=== PATIENT | female | born 1945 | race Two or more races ===

== ENCOUNTER → 2019-08-29 | Outpatient (CLI) | payer MEDICARE ==
--- NOTE | 2019-08-28 19:09 | MR ---
EXAMINATION TYPE: MR knee RT wo con DATE OF EXAM: 08/28/2019 COMPARISON: Outside right knee x-ray July 09, 2019 HISTORY: Rt knee pain per order. Pain and swelling for 3 months per patient. TECHNIQUE: Multiplanar, multisequence images of the knee is performed without IV contrast. FINDINGS: MEDIAL MENISCUS: Anterior horn is intact without tear. Posterior horn shows horizontal slightly irreg ular increased signal does not distinctly extend to articular surface LATERAL MENISCUS: Lateral extrusion is seen on coronal images. Anterior horn is truncated with abnorm al vertical and horizontal signal sagittal image 25. Truncated central body with increased signal. Ob lique signal posterior horn does not extend to articular surface. CRUCIATE LIGAMENTS: The anterior and posterior cruciate ligaments are intact and unremarkable. COLLATERAL LIGAMENTS: The medial collateral ligament and lateral collateral ligament complex are inta ct and unremarkable. EXTENSOR MECHANISM: Visualized quadriceps and patellar tendons are intact. Edematous change through H offa's fat pad deep aspect. EFFUSION: There is large suprapatellar joint effusion. POPLITEAL CYST: No popliteal/ornelas cyst. TRICOMPARTMENT SPACES: Fairly moderate tricompartment joint space loss and minimal spurring. CARTILAGE: Some chondromalacia patella with thinning of articular cartilage. No full thickness loss. Additional cartilaginous thinning over the lateral medial tibial femoral compartments. BONE MARROW SIGNAL: Some overall heterogeneity without suspicious focal edema. OTHER: No additional significant abnormality is appreciated. IMPRESSION: 1. Complex full-thickness tear through posterior horn and central body of the lateral meniscus. 2. Large suprapatellar joint effusion. 3. Moderate tricompartment degenerative changes as detailed above. 4. Probable intrasubstance tear posterior horn of medial meniscus. 5. Fluid signal deep aspect Hoffa's fat pad likely product of large effusion, cannot exclude Hoffa's fat pad impingement syndrome. Correlate clinically.
== END | disposition home or self-care (01) ==
LOC: RADMRIMAIN 05:15
PROVIDERS: ATTEND Orthopaedic Surgery
DX: S83.271A Complex tear of lateral meniscus, current injury, right knee, initial encounter (principal); M25.461 Effusion, right knee; E88.89 Other specified metabolic disorders

== ENCOUNTER → 2019-09-30 | Outpatient (CLI) | payer MEDICARE ==
[2019-09-30 14:06] LABS: Basophils % (A) 1 %; Eosinophils # (A) 0.1 k/uL (0-0.7); Eosinophils % (A) 2 %; HCT 37.6 % (34.0-46.0); HGB 12.1 gm/dL (11.4-16.0); Lymphocytes # (A) 1.9 k/uL (1.0-4.8); Lymphocytes % (A) 36 %; MCH 30.3 pg (25.0-35.0); MCHC 32.3 g/dL (31.0-37.0); Mean Platelet Volume 8.1; Monocytes # (A) 0.3 k/uL (0-1.0); Monocytes % (A) 5 %; Neutrophils # (A) 2.9 k/uL (1.3-7.7); Neutrophils % (A) 56 %; Platelet Count 232 k/uL (150-450); RDW 12.5 % (11.5-15.5); WBC 5.3 k/uL (3.8-10.6)
[2019-09-30 14:37] LABS: Potassium 4.4 mmol/L (3.5-5.1)
== END | disposition home or self-care (01) ==
LOC: LABPAT 12:52
PROVIDERS: ATTEND Orthopaedic Surgery
DX: Z01.818 Encounter for other preprocedural examination (principal); M23.91 Unspecified internal derangement of right knee
CPT/HCPCS: 36415; 80051; 85025; 93005

== ENCOUNTER 2019-10-03 11:23 | Day surgery (SDC) | payer MEDICARE ==
[2019-09-30 16:01] VITALS: BMI 22.4
--- NOTE | 2019-10-02 16:51 | HP ---
HISTORY AND PHYSICAL DATE OF SERVICE: 10/03/2019 Maryanne Don is a 74-year-old patient seen with progressive right knee pain. We discussed options for treatment. She elected to proceed with arthroscopy. Consent was obtained. PAST MEDICAL HISTORY: Noncontributory. PAST SURGICAL HISTORY: Appendectomy. DAILY MEDICATIONS: Ibuprofen, Restoril, Xanax. ALLERGIES: None. SOCIAL HISTORY: She denies tobacco use. PHYSICAL EVALUATION OF THE RIGHT KNEE: Range of motion is 0-125. Tenderness along the lateral joint line. Positive lateral Anabel's. Ligaments stable. Hip rotation without pain. Distal neurovascular exam is intact. RADIOGRAPHS OF THE RIGHT KNEE: Revealed moderate osteoarthritis. An MRI of the right knee revealed lateral meniscal tear, osteoarthritis and joint effusion. IMPRESSION: 1. Internal derangement, right knee lateral meniscal tear. 2. Right knee osteoarthritis. PLAN: Right knee arthroscopy with partial meniscectomy, partial synovectomy and debridement. MMODL / IJN: [id number] /
[~2019-10-03 11:23] MED LIST: DEXAMETHASONE SOD PHOSPHATE 10 MG/ML 1 ML VIAL IV ONE; HYDROmorphone 0.5 MG/0.5 ML SYRINGE IVP PRN; LACTATED RINGERS 1,000 ML IV SCH; ONDANSETRON 4 MG/2 ML VIAL IVP ONE
[2019-10-03] MEDS ORDERED: ONDANSETRON 4 MG/2 ML VIAL ONE (13:18)
[2019-10-03] MEDS ORDERED: LIDOCAINE 1% INJ 10MG/ML (20 ML MDV) ONE (14:23)
[2019-10-03] MEDS ORDERED: fentaNYL (PF) 50 MCG/ML 2 ML AMP ONE (14:23)
[2019-10-03] MEDS ORDERED: PROPOFOL 10 MG/ML 20 ML VIAL IV ONE (14:23)
[2019-10-03] MEDS ORDERED: MIDAZOLAM 2 MG/2 ML VIAL ONE (14:23)
[2019-10-03] MEDS ORDERED: BUPIVACAINE (PF) 0.25% 30 ML VIAL SQ ONE ×2 (14:26→15:03)
--- NOTE | 2019-10-03 15:20 | P.OP ---
Date of Procedure: 10/03/19 Preoperative Diagnosis: Internal derangement right knee Postoperative Diagnosis: 1. Tear lateral meniscus right knee 2. Grade 2 chondromalacia lateral femoral condyle right knee 3. Grade 2 chondromalacia patella right knee 4. Reactive synovitis medial, lateral and suprapatellar compartments right knee Procedure(s) Performed: 1. Arthroscopic partial lateral meniscectomy right knee 2. Arthroscopic chondroplasty lateral femoral condyle right knee 3. Arthroscopic chondroplasty patella right knee 4. Arthroscopic partial synovectomy medial, lateral and suprapatellar compartments right knee Anesthesia: ADITIA, local Surgeon: Satish Russo Estimated Blood Loss (ml): 7 Pathology: none sent Condition: stable Disposition: PACU Indications for Procedure: 74-year-old patient seen with progressive right knee pain. After treatment options were discussed, she elected to proceed with arthroscopy. Operative Findings: see description of procedure Description of Procedure: Patient was taken to the operative suite. Patient underwent a general anesthetic by the department of anesthesia. Patient was given preoperative antibiotics. The right lower extremity was placed in a well-padded arthroscopic leg reynolds. The right leg was prepped and draped in the normal sterile orthopedic fashion. A lateral parapatellar and suprapatellar incision was made. Trochars were inserted. Arthroscopy was initiated. Suprapatellar pouch revealed diffuse thick reactive synovitis. The patellofemoral joint appeared to articulate congruently. There was grade 2 chondromalacia of the patella with diffuse osteochondral flap tears present. The scope was guided into the medial gutter. No loose bodies or plica were identified. The scope was then guided into the medial compartment. A medial parapatellar incision was made. Trocar inserted followed by probe. The medial meniscus was probed and found to be stable. There was some grade 1/2 chondromalacia of the medial femoral condyle but no osteochondral flap tears were present. There was some thick reactive synovitis anteriorly. I performed a partial synovectomy. There was good decompression of the synovitis. Scope and probe were then guided into the intercondylar notch. Cruciates were identified, probed and found to be stable. The scope and probe were then guided into lateral compartment. There was a complex tear of the lateral meniscus involving the anterior horn and midbody and posterior horn. There were grade 2 chondromalacia changes of lateral femoral condyle with some diffuse osteochondral flap tears present. There was thick reactive synovitis anteriorly. I performed a partial lateral meniscectomy. I performed a chondroplasty of the lateral femoral condyle. I performed a partial synovectomy. The residual meniscus was stable. The residual osteochondral surface of the femoral condyle was stable. There was good decompression of the synovitis. The scope was in guided back into the suprapatellar compartment. I introduced a motorized shaver into the suprapatellar compartment. I debrided some piecemeal fragments of meniscus I encountered. I performed a chondroplasty of the patella. The shaver was removed. The residual osteochondral surface of the patella was stable. I took one more look around the entire knee, no residual debris. Instruments were now removed from the joint. The joint was infiltrated with .25% Marcaine. Steri-Strips were applied to the portal sites. Sterile dressings were applied. The patient was placed into a JOSS hose. No tourniquet was utilized. The patient was awakened, transferred to a bed and ta krishan to recovery stable satisfactory condition.
[2019-10-04 08:13] VITALS: BP 150/64; PULSE 82; RESP 20; TEMP 97.6
== END 2019-10-03 17:35 | disposition home or self-care (01) ==
LOC: OR 11:23
PROVIDERS: ATTEND Orthopaedic Surgery
DX: M23.241 Derangement of anterior horn of lateral meniscus due to old tear or injury, right knee (principal); M23.251 Derangement of posterior horn of lateral meniscus due to old tear or injury, right knee; M22.41 Chondromalacia patellae, right knee; R42 Dizziness and giddiness; M17.11 Unilateral primary osteoarthritis, right knee; M65.861 Other synovitis and tenosynovitis, right lower leg; Z90.49 Acquired absence of other specified parts of digestive tract; Z79.899 Other long term (current) drug therapy; Z72.0 Tobacco use; Z82.49 Family history of ischemic heart disease and other diseases of the circulatory system
CPT/HCPCS: 93005; 29881; J2250; J1100; J2405; J0690; J2001; J3010; J2704; J1170

== ENCOUNTER → 2020-05-26 | Outpatient (CLI) | payer MEDICARE | END | disposition home or self-care (01) | LOC: LABPAT 15:31 | PROVIDERS: ATTEND Orthopaedic Surgery | DX: Z01.812 Encounter for preprocedural laboratory examination (principal) | CPT/HCPCS: 87070 ==

== ENCOUNTER 2020-07-06 10:59 | Day surgery (SDC) | payer MEDICARE ==
[2020-06-29 14:15] VITALS: BMI 22.6
--- NOTE | 2020-07-05 11:34 | HP ---
HISTORY AND PHYSICAL DATE OF SURGERY: 07/06/2020 HISTORY OF PRESENT ILLNESS: Maryanne Don is a 75-year-old patient seen with symptomatic right knee osteoarthritis. We discussed options for treatment. She elected to proceed with right total knee arthroplasty. Consent was obtained. Medical clearance was provided by Dr. Branden Neri. PAST MEDICAL HISTORY: Osteoarthritis. PAST SURGICAL HISTORY: Appendectomy. MEDICATIONS: Flexeril, ibuprofen, Xanax. ALLERGIES: None. SOCIAL HISTORY: She denies tobacco use. PHYSICAL EVALUATION OF THE RIGHT KNEE: Right knee: Range of motion is -3/4 to 115. Tenderness along the lateral joint line. Crepitus along lateral patellofemoral compartments with range of motion. Pain with patellofemoral compression. Genu valgum deformity. Distal neurovascular exam intact. RADIOGRAPHS: Right knee radiographs revealed severe osteoarthritic changes. IMPRESSION: Right knee osteoarthritis. PLAN: Right total knee arthroplasty. MMODL / IJN: [id number] /
[~2020-07-06 10:59] MED LIST changes: +ACETAMINOPHEN TAB 500 MG TAB PO PRN; -DEXAMETHASONE SOD PHOSPHATE 10 MG/ML 1 ML VIAL IV ONE; +DEXAMETHASONE SOD PHOSPHATE 4 MG/ML 1 ML VIAL IV ONE; -LACTATED RINGERS 1,000 ML IV SCH; +MELOXICAM 7.5 MG TAB PO PRN; +MIDAZOLAM 2 MG/2 ML VIAL IV PRN; +ROPIVACAINE/EPI/CLONIDINE/KET 50 ML SYRINGE MISCELLANE PRN; +TRANEXAMIC ACID 1,000 MG in SODIUM CHLORIDE 0.9% 100 ML IVPB PRN
[2020-07-06] MEDS: LIDOCAINE 1% (10MG/ML) FOR IV START INTRADERMA PRN ×2 (11:16→11:46)
[2020-07-06] MEDS: LACTATED RINGERS 1,000 ML IV SCH ×2 (11:45→18:59)
[2020-07-06] MEDS ORDERED: fentaNYL (PF) 50 MCG/ML 2 ML AMP ONE (12:35)
[2020-07-06] MEDS ORDERED: MIDAZOLAM 2 MG/2 ML VIAL ONE (12:35)
[2020-07-06] MEDS ORDERED: LIDOCAINE 1% INJ 10MG/ML (20 ML MDV) ONE (12:35)
[2020-07-06] MEDS ORDERED: PROPOFOL 10 MG/ML 20 ML VIAL IV ONE (12:35)
[2020-07-06] MEDS ORDERED: SODIUM CHLORIDE 0.9% 100 ML BAG ONE (12:35)
[2020-07-06] MEDS ORDERED: TRANEXAMIC ACID 1,000 MG/10 ML VIAL ONE (12:35)
[2020-07-06] MEDS ORDERED: ROPIVACAINE 0.2%-NS ON-Q PUMP 1,090 MG, EMPTY PAIN BALL 1 EACH MISCELLANE PRN (12:55)
[2020-07-06] MEDS ORDERED: ceFAZolin 3,000 MG in SODIUM CHLORIDE 0.9% IRRIGATIO 3,000 ML IRRIGATION ONE (13:05)
--- NOTE | 2020-07-06 13:21 | P.ANPRN ---
Procedure Note - Anesthesia - Nerve Block Performed Right Adductor Canal Infusion Time Out Performed: Yes Date of Procedure: 07/06/20 Procedure Start Time: 11:53 Procedure Stop Time: 11:58 Location of Patient: PreOp Indication: Acute Post-Operative Pain, Analgesia, Dx/Pain Location, Requested by Surgeon Sedation Type: Sedate with meaningful contact maintained Preparation: Sterile Prep Position: Supine Catheter: Indwelling Needle Types: Pajunk Needle Gauge: 21 Ultrasound used to visualize needle placement: Yes Ultrasound used to observe medication spread: Yes Injectate: 0.5% Ropivacaine (see comment for volume) Blood Aspirated: No Pain Paresthesia on Injection Noted: No Resistance on Injection: Normal Image Stored and Saved: Yes Events: Uneventful and Well Tolerated
[2020-07-06] MEDS ORDERED: HYDROcodone/APAP 5-325MG 1 EACH TAB PO PRN (14:09)
[2020-07-06] MEDS ORDERED: HYDROmorphone 0.2 MG/1 ML SYRINGE IVP PRN (14:09)
[2020-07-06] MEDS ORDERED: ONDANSETRON 4 MG/2 ML VIAL IVP PRN (14:09)
[2020-07-06] MEDS ORDERED: HYDROmorphone 0.5 MG/0.5 ML SYRINGE IVP PRN ×2 (14:09)
[2020-07-06] MEDS ORDERED: NALOXONE 0.4 MG/ML 1 ML VIAL IV PRN (14:09)
--- NOTE | 2020-07-06 14:09 | P.OP ---
Date of Procedure: 07/06/20 Preoperative Diagnosis: Right knee osteoarthritis Postoperative Diagnosis: Right knee osteoarthritis Procedure(s) Performed: Right total knee arthroplasty Implants: 1. Depuy attune size 5 narrow cruciate retaining cemented femur 2. Depuy attune size 4 fixed bearing cemented tibial baseplate 3. Depuy attune size 5 fixed bearing cruciate retaining 5 mm polyethylene tibial insert 4. Depuy attune 38 mm all polyethylene cemented patella Anesthesia: regional (Adductor canal catheter), local, spinal Surgeon: Satish Russo Backroom Associate #1: Keith Arredondo Estimated Blood Loss (ml): 45 Pathology: other (Bone) Condition: stable Disposition: PACU Indications for Procedure: 75-year-old patient seen with symptomatic right knee osteoarthritis. After treatment options were discussed, she elected to proceed with total knee arthrop lasty. Operative Findings: see description of procedure Description of Procedure: Patient was taken to the operative suite after having an adductor canal catheter placed by the department of anesthesia. Patient underwent a spinal anesthetic by the department of anesthesia. Patient was given preoperative IV intake antibiotics and TXA. A well-padded tourniquet was placed about the right lower extremity. The lower extremity was then prepped and draped in the normal sterile orthopedic fashion. The extremity was elevated, a tourniquet was ins ufflated to 300. A standard anterior incision was made sharply through skin. Dissection was taken down through the subcutaneous soft tissues down to the extensor mechanism. A medial arthrotomy was performed, patella was everted and knee was flexed. There was advanced osteoarthritis noted. I introduced my distal intramedullary femoral drill. I then introduced the distal femoral cutting jig. Keith RAMÍREZ secured the cutting jig with 2 pins. I held retractors in position while Keith RAMÍREZ performed the distal femoral resection through the guide area we now removed her distal femoral cutting guide. We now placed our 4-in-1 femoral cutting block and positioned and it was secured with 2 pins by Keith RAMÍREZ while I held the block in position. The distal femoral finishing was now completed. A proximal tibial cutting guide was positioned. I held the guide in the appropriate position with both hands well Keith RAMÍREZ inserted stabilizing pins into the guide. Proximal tibial cut was made. We now placed a trial femoral component into position, along with an appropriate size tibial tray and insert. We now took the knee through range of motion and had full extension good flexion and good overall soft tissue balance noted. The patella was everted and stabilized with 2 towel clips held by Keith RAMÍREZ while I performed a flush with patellar quad tendon utilizing a fresh sawblade. We templated the patella, appropriate drill holes were made. An appropriate trial patella was positioned, knee was taken through full range of motion with the patella tracking very nicely. The trial patella was removed. Drill holes were made through the femoral component. All trial components were removed after marking off the appropriate rotation of the tibia. Retractors were now positioned along the proximal tibia. An appropriate keel punch was made with the appropriate size tibial guide by myself on Helio RAMÍREZ assisted by holding retractors. At this point appropriate size implants were chosen and opened. The joint was irrigated copiously with pulse lavage mechanical irrigation. The posterior capsule was infiltrated with local analgesic. The wound was irrigated with pulse lavage mechanical irrigation. We mixed antibiotic methylmethacrylate. We placed the knee into flexion. We placed multiple retractors assisted by Keith RAMÍREZ to expose the proximal tibia. Once the methyl methacrylate was ready, the tibial component was cemented into place removing any excess methylmethacrylate form by both myself and Keith RAMÍREZ. The femoral component was cemented into place removing the removing any excess methylmethacrylate performed by both myself and Keith RAMÍREZ. We then inserted the appropriate size polyethylene tibial insert. We made sure that it was locked into position. We took the knee into full extension, and then back in a flexion making sure we had removed any excess methylmethacrylate. The patellar component was then cemented down and secured with clamp. Excess methylmethacrylate removed. We kept the knee in full extension, patellar clamp in position until methylmethacrylate had hardened. Once it had hardened the patellar clamp was removed. The knee was taken through full range of motion. The patella tracked nicely. There was good soft tissue balancing. The tourniquet was now released. Additional hemostasis was achieved via electrocautery. A second gram of TXA was given. The wound again was irrigated with pulse lavage mechanical irrigation. The superficial soft tissues were infiltrated local analgesic. The extensor mechanism was repaired with Vicryl. We checked the repair with range of motion and it was stable. The subcutaneous soft tissues were repaired with Vicryl in layers. The skin was approximated with pernio/Dermabond. Sterile dressings were applied followed by loose web roll and David bandage. The patient was transferred to a bed, and taken to recovery in stable and satisfactory condition. Keith RAMÍREZ assisted with this complex procedure.
[2020-07-06] MEDS ORDERED: LACTATED RINGERS 1,000 ML IV ONE (14:18)
--- NOTE | 2020-07-06 14:59 | XR ---
EXAMINATION TYPE: XR knee limited RT DATE OF EXAM: 07/06/2020 CLINICAL HISTORY: Right knee pain and arthritis status post total knee replacement. TECHNIQUE: Portable AP and crosstable lateral views of the right knee are obtained immediately posto peratively. COMPARISON: Outside right knee x-ray April 21, 2020 FINDINGS: Metallic hardware from total right knee arthroplasty is seen and appears satisfactory in a lignment and position. There is evidence of recent surgery with diffuse subcutaneous gas and surroun ding soft tissue swelling noted. [place] osseous structures demineralized. IMPRESSION: METALLIC HARDWARE FROM TOTAL RIGHT KNEE ARTHROPLASTY IS SATISFACTORY IN ALIGNMENT.
[2020-07-06] MEDS: HYDROcodone/APAP 5-325MG 1 EACH TAB PO PRN (18:52)
[2020-07-06] MEDS ORDERED: SENNOSIDES-DOCUSATE SODIUM 1 EACH TAB PO SCH (21:00)
[2020-07-06] MEDS: ENOXAPARIN 30 MG/0.3 ML SYRINGE SQ SCH (21:35)
[2020-07-07] MEDS: HYDROcodone/APAP 5-325MG 1 EACH TAB PO PRN ×3 (01:37→11:21)
[2020-07-07] MEDS: LACTATED RINGERS 1,000 ML IV SCH ×2 (01:39→04:42)
[2020-07-07 04:30] VITALS: BP 119/61; PULSE 67; RESP 14; TEMP 98
--- NOTE | 2020-07-07 06:12 | P.PN ---
Progress Note - Text Progress Note Date: 07/07/20 adductor canal rounds, POD 1 R TKR. doing well, mild posterior knee pain. VAS 2/10, able to stand and ambulate. pump in place. site clean and dry, patient resting this morning. 1 dose of hydrocodone 5mg over night. will be d/c home today with catheter.
[2020-07-07 06:40] LABS: Basophils % (A) 0 %; Eosinophils # (A) 0.1 k/uL (0-0.7); Eosinophils % (A) 1 %; HCT 29.6 % (34.0-46.0); HGB 10.4 gm/dL (11.4-16.0); Lymphocytes # (A) 1.1 k/uL (1.0-4.8); Lymphocytes % (A) 14 %; MCH 32.5 pg (25.0-35.0); MCHC 35.1 g/dL (31.0-37.0); MCV 92.4 fL (80.0-100.0); Mean Platelet Volume 7.6; Monocytes # (A) 0.4 k/uL (0-1.0); Monocytes % (A) 5 %; Neutrophils # (A) 6.2 k/uL (1.3-7.7); Neutrophils % (A) 80 %; Platelet Count 196 k/uL (150-450); RBC 3.21 m/uL (3.80-5.40); RDW 12.4 % (11.5-15.5); WBC 7.8 k/uL (3.8-10.6)
[2020-07-07] MEDS: ENOXAPARIN 30 MG/0.3 ML SYRINGE SQ SCH (08:35)
[2020-07-07] MEDS ORDERED: MELOXICAM 7.5 MG TAB PO SCH (09:00)
[2020-07-07] MEDS ORDERED: FAMOTIDINE 20 MG TAB PO SCH (09:00)
--- NOTE | 2020-07-07 12:52 | P.DS ---
Providers Date of admission: 07/06/2020 Expected date of discharge: 07/07/20 Attending physician: Satish Russo Consults: 07/06/20 14:09 Consult Physician Routine Consulting Provider: Alton Carlos Consult Reason/Comments: Medical management Do you want consulting provider notified?: Yes Primary care physician: Noé Chaney [facility] Course: Date of admission: 07/06/2020 Date of discharge: 07/07/2020 Admission diagnosis: Right knee osteoarthritis Discharge diagnosis: Same Attending physician: Dr. Russo Surgical procedures: Right total knee arthroplasty Brief history: Patient is a 75-year-old female with a history of progressive primary right knee osteoarthritis. At this point patient has failed conservative treatment measures and has opted to proceed with a elective right total knee arthroplasty. Hospital course: Details of patient's surgery can be found in operative report. Patient tolerated the procedure well and was subsequently transported to orthopedic floor. Patient's orthopeidc and medical care was provided daily. Patient had daily laboratory tests performed for evaluation of overall blood counts . Patient had daily physical therapy to include strengthening range of motion as well as education with walker ambulation. Patient was treated with Lovenox for their postoperative DVT prophylaxis during their inpatient stay. Patient was noted to have a relatively uneventful postoperative course. Patient reported satisfactory pain control with oral pain medications by postoperative day 1. Patient showed satisfactory progress with physical therapy. Patient moved steadily through the program and had no difficulty meeting the goals by postoperative day 1. Given patient's otherwise satisfactory course and having met physical therapy goals, plan is to discharge patient home on postoperative day 1. Discharge condition/disposition: Patient will be discharged home in stable condition. Discharge medications: Instructions are given on resumption of patient's normal daily medications per primary care recommendation, in addition patient will be prescribed [place] 5 mg/325 mg. Patient has aspirin and MiraLAX at home that she takes. Discharge instructions: 1. Wound care and infection precautions, keep incision dry and covered while showering, no lotions, creams, moisturizers. No soaking, tubs, pools, hottubs. Do not scrub over the incision. 2. Weight-bear as tolerated with walker / cane until follow-up. 3. Ice and elevate when necessary. Do not exceed 20 minutes per hour with ice pack. 4. Utilize compression sleeve until seen at first follow up appointment. 5. Visiting nursing care. 6. Home physical therapy including home CPM. 7. Pain meds and anticoagulants per prescription. 8. Pain medication has potential to cause constipation. Increase oral fluid and fiber intake. Contact primary care provider if you have not had a bowel movement within 48 hours after discharge 9. No anti-inflammatory medication until discussed at first post operative visit, this including Motrin, Aleve, Mobic, Diclofenac. 10. Follow up in office at 2 weeks postop with Helio Kidd PA-C / Keith Arredondo PA-C 11. Follow up with your primary care doctor 7-10 days after discharge. 12. Contact [facility] with any questions, . Keep silver foam dressing on for first 7-10 days. Cover dressing with Saran wrap or plastic bag while showering. Dressing may be removed in 7 days. Assessment: Right knee osteoarthritis Procedures: Right total knee arthroplasty Patient Condition at Discharge: Good Plan - Discharge Summary Discharge Rx Participant: No New Discharge Prescriptions: New HYDROcodone/APAP 5-325MG [[place] 5-325] 1 tab PO Q6HR PRN #42 tab PRN Reason: Pain Continue Temazepam [Restoril] 30 mg PO HS Cholecalciferol (Vitamin D3) [Vitamin D3 (5000 Iu)] 125 mcg PO DAILY Ascorbic Acid [Vitamin C] 1,000 mg PO DAILY Discontinued Ibuprofen [Motrin] 800 mg PO Q8H PRN PRN Reason: Pain Discharge Medication List Temazepam [Restoril] 30 mg PO HS 09/30/19 [History] Ascorbic Acid [Vitamin C] 1,000 mg PO DAILY 06/29/20 [History] Cholecalciferol (Vitamin D3) [Vitamin D3 (5000 Iu)] 125 mcg PO DAILY 06/29/20 [History] HYDROcodone/APAP 5-325MG [[place] 5-325] 1 tab PO Q6HR PRN #42 tab 07/07/20 [Rx] Follow up Appointment(s)/Referral(s): [facility], [NON-STAFF] - As Needed Alexi Kidd PAC [PHYSICIAN GEAR MACHINE OPERATOR GENERAL] - 2 Weeks Activity/Diet/Wound Care/Special Instructions: Orthopedic Discharge Instructions: 1. Wound care and infection precautions, keep incision dry and covered while showering, no lotions, creams, moisturizers. No soaking, pools, hot tubs. Do not scrub over incision. 2. Weight-bear as tolerated with walker / cane until follow-up. 3. Ice and elevate when necessary. Do not exceed 20 minutes per hour with ice pack. 4. Utilize compression sleeve until seen at first follow up appointment. 5. Pain meds and anticoagulants per prescription. 6. Pain medication has potential to cause constipation. Increase oral fluid and fiber intake. Contact primary care provider if you have not had a bowel movement within 48 hours after discharge. 7. No anti-inflammatory medication until discussed at first post operative visit, this including Motrin, Aleve, Mobic, Diclofenac. 8. Follow up in office at 2 weeks postop with Helio Kidd PA-C / Keith Arredondo PA-C 9. Follow up with your primary care doctor 7-10 days after discharge. 10. Contact [facility] with any questions, . Keep silver foam dressing on for first 7-10 days. Keep dressing covered with Saran wrap or plastic bag while showering. Silver foam dressing may be removed after 7-10 days Discharge Disposition: HOME WITH HOME HEALTH SERVICES
--- NOTE | 2020-07-07 13:49 | P.PN ---
Subjective Progress Note Date: 07/07/20 Principal diagnosis: Right total knee arthroplasty Upon entering room patient was sitting up in chair icing knee. Patient says she is in minimal pain. She rates it as 2 or 3 out of 10. She states most of the pain is at the back of the knee. She says all of the nurses and PT have been surprised by how well she has been doing. Patient says she would like to go home today. She says she had bowel movement last night and has been passing gas. She says she has been doing exercises on own as well. Has been using incentive spirometer. Denies, fever, chest pain, SOB. Objective - Vital Signs Vital signs: Vital Signs Temp 98.0 F 07/07/20 04:26 Pulse 67 07/07/20 04:26 Resp 14 07/07/20 04:26 BP 119/61 07/07/20 04:26 Pulse Ox 95 07/07/20 04:26 Intake & Output 07/06/20 07/07/20 07/07/20 18:59 06:59 18:59 Intake Total 1301 750 240 Output Total 45 Balance 1256 750 240 Weight 56 kg Intake: IV 1301 Intake, IV Titration 550 Amount Lactated Ringers 1,000 ml 450 @ 50 mls/hr IV .Q20H [place] Rx#:[id number] ceFAZolin 2 gm In Sodium 100 Chloride 0.9% 50 ml @ 100 mls/hr IVPB Q8H [place] Rx#: [id number] Oral 200 240 Output: Estimated Blood Loss 45 Other: Voiding Method Toilet # Voids 2 - Exam Incision is clean, dry, and intact. The exofin fusion tape is in good condition. There is minimal soft tissue swelling and ecchymosis surrounding the medial and lateral aspects of the incision. Calf is soft, no tenderness with palpation. Plantar flexion, dorsiflexion, EHL, FHL are intact. Sensory exam to light touch throughout the extremity is intact, dorsal pedis pulses 2+. - Labs CBC & Chem 7: 07/07/20 06:13 Labs: Abnormal Lab Results - Last 24 Hours (Table) 07/07/20 Range/Units 06:13 RBC 3.21 L (3.80-5.40) m/uL Hgb 10.4 L (11.4-16.0) gm/dL Hct 29.6 L (34.0-46.0) % Assessment and Plan Assessment: Right knee osteoarthritis Plan: Assessment: Postoperative day 1 status post right total knee arthroplasty Plan: 1. Continue with medical management 2. Pain management - going home with [place] 5 mg/325 mg for pain. Stool softeners prn 3. Continue with physical therapy, including gait/stair training. 4. Continue with daily aspirin for DVT prophylaxis. 5. Discharge planning. 6. Anticipated discharge today 07/07/2020. Time with Patient: Less than 30
[2020-07-08] MEDS ORDERED: CHOLECALCIFEROL 25 MCG (1000 IU) TABLET PO SCH (09:00)
[2020-07-08] MEDS ORDERED: ASCORBIC ACID 500 MG TAB PO SCH (09:00)
== END 2020-07-07 13:25 | disposition home health service (06) ==
LOC: OR 10:59 → 5NMEDONC 14:35 → OR 07-07 13:25
PROVIDERS: ATTEND Orthopaedic Surgery
DX: M17.11 Unilateral primary osteoarthritis, right knee (principal); Z20.822 Contact with and (suspected) exposure to COVID-19; Z79.899 Other long term (current) drug therapy; Z88.2 Allergy status to sulfonamides
CPT/HCPCS: 27447; 97110; 97161; 64448; 76942; 85025; 88300; 87635; 73560; C1776; C1713; J2250; J1100; J0690 ×3; J2405; J1650 ×2

== ENCOUNTER 2021-10-17 16:51 | Inpatient (IN) | payer MEDICARE, OTHER ==
[2021-10-17] MEDS ORDERED: MORPHINE SULFATE 4 MG/ML SYRINGE IVP STA (17:10)
--- NOTE | 2021-10-17 17:37 | XR ---
EXAMINATION TYPE: XR chest 1V DATE OF EXAM: 10/17/2021 5:33 PM COMPARISON: Chest radiographs from TECHNIQUE: XR chest 1V Frontal view of the chest. CLINICAL INDICATION:Female, 76 years old with history of FALL; FINDINGS: Lungs/Pleura: There is no evidence of pleural effusion, focal consolidation, or pneumothorax. Pulmonary vascularity: Unremarkable. Heart/mediastinum: Cardiomediastinal silhouette is unremarkable. Musculoskeletal: No acute osseous pathology. IMPRESSION: No acute cardiopulmonary disease/process.
--- NOTE | 2021-10-17 17:39 | XR ---
EXAMINATION TYPE: XR Hip RT and AP Pelvis DATE OF EXAM: 10/17/2021 5:33 PM INDICATION: Patient age:Female; 76 years old; Reason for study: right hip pain, fall; PHH. COMPARISON: None. TECHNIQUE: The right hip was examined in the frontal and lateral projections and a AP pelvis. FINDINGS: Acute valgus impacted subcapital right femoral neck fracture. No additional fractures are i dentified. Scattered pelvic phleboliths are present. Multilevel disc degeneration changes are present . Dystrophic calcifications within the gluteal muscles bilaterally. IMPRESSION: Valgus impacted right subcapital femoral neck fracture.
--- NOTE | 2021-10-17 17:40 | XR ---
EXAMINATION TYPE: XR knee complete RT DATE OF EXAM: 10/17/2021 5:33 PM INDICATION: Patient age:Female; 76 years old; Reason for study: right knee pain, fall; COMPARISON: Right knee radiograph 07/06/2020. TECHNIQUE: The Right knee(s) was examined in 3 projections. Frontal, lateral and oblique. FINDINGS: Postsurgical changes from total knee arthroplasty with distal femoral proximal tibial com ponents. Hardware appears intact with appropriate alignment. No periprosthetic lucency. No evidence o f any acute osseous pathology, joint space narrowing, soft tissue swelling, or joint effusion is note d. IMPRESSION: 1. No acute osseous pathology. 2. Postsurgical changes from total knee arthroplasty with intact hardware.
[2021-10-17 18:25] LABS: Basophils % (A) 0 %; Eosinophils # (A) 0.1 k/uL (0-0.7); Eosinophils % (A) 1 %; HCT 39.2 % (34.0-46.0); HGB 12.4 gm/dL (11.4-16.0); Lymphocytes % (A) 27 %; MCH 29.4 pg (25.0-35.0); MCHC 31.5 g/dL (31.0-37.0); MCV 93.1 fL (80.0-100.0); Mean Platelet Volume 8.4; Monocytes # (A) 0.4 k/uL (0-1.0); Monocytes % (A) 5 %; Neutrophils # (A) 4.9 k/uL (1.3-7.7); Neutrophils % (A) 66 %; Platelet Count 286 k/uL (150-450); RBC 4.21 m/uL (3.80-5.40); RDW 13.2 % (11.5-15.5); WBC 7.4 k/uL (3.8-10.6)
[2021-10-17 18:33] LABS: Calcium 8.9 mg/dL (8.4-10.2); Potassium 4.2 mmol/L (3.5-5.1)
[2021-10-17] MEDS ORDERED: MORPHINE SULFATE 4 MG/ML SYRINGE IV PRN (18:33)
[2021-10-17] MEDS ORDERED: NALOXONE 0.4 MG/ML 1 ML VIAL IV PRN (18:33)
--- NOTE | 2021-10-17 18:37 | ED ---
General Adult HPI - General Chief complaint: Extremity Injury, Lower Stated complaint: fall Time Seen by Provider: 10/17/21 16:56 Source: patient, family, EMS, RN notes reviewed, old records reviewed Mode of arrival: EMS Limitations: physical limitation - History of Present Illness Initial comments: Patient is a 76-year-old female who presents emergency Department following a mechanical fall. She is not on thinners. No loss of conscious. Tripped and fell onto her right hip. Does have a history of right knee replacement. Was unable to ambulate afterwards. Had extreme pain in the right hip. Denies any sensory deficits the right lower extremity. No other injuries. Denies hitting her head. Does not take blood thinners. No other injuries. Does have a history of prior knee surgery. Also has a history of chronic back pain. No change in pain in her back. States her right hip hurts. Presents for further evaluation at this time. - Related Data Home Medications Medication Instructions Recorded Confirmed Calcium Carbonate [Calcium] 600 mg PO DAILY 10/17/21 10/17/21 Cholecalciferol [Vitamin D3 (25 50 mcg PO DAILY 10/17/21 10/17/21 Mcg = 1000 Iu)] Ibuprofen [Motrin] 800 mg PO TID PRN 10/17/21 10/17/21 Temazepam [Restoril] 30 mg PO HS 10/17/21 10/17/21 Vitamin B Complex 1 cap PO DAILY 10/17/21 10/17/21 hydrOXYzine HCL [Atarax] 25 mg PO DIRECTED@2100 PRN 10/17/21 10/17/21 polyethylene glycoL 3350 [Miralax] 17 gm PO DAILY 10/17/21 10/17/21 Allergies Allergy/AdvReac Type Severity Reaction Status Date / Time No Known Allergies Allergy Verified 10/17/21 16:53 Review of Systems ROS Statement: Those systems with pertinent positive or pertinent negative responses have been documented in the HPI. Review of Systems: CONST: Denies fever EYES: Denies blurry vision ENT: Denies nasal congestion C/V: Denies Chest pain RESP: Denies shortness of breath GI: Denies abdominal pain : Denies dysuria SKIN: Denies rash. MSK: Endorses right hip pain NEURO: Denies headache ROS Other: All systems not noted in ROS Statement are negative. Past Medical History Past Medical History: Osteoarthritis (OA) Additional Past Medical History / Comment(s): Chronic back pain History of Any Multi-Drug Resistant Organisms: None Reported Past Surgical History: Orthopedic Surgery Additional Past Surgical History / Comment(s): Right knee arthroscopy. Past Anesthesia/Blood Transfusion Reactions: No Reported Reaction Past Psychological History: No Psychological Hx Reported Smoking Status: Former smoker Past Alcohol Use History: None Reported Past Drug Use History: None Reported - Past Family History Mother Family Medical History: Cancer Brother(s) Family Medical History: Cancer Sister(s) Family Medical History: Cancer General Exam - General Exam Comments Initial Comments: General: Appears in mild distress secondary to pain. HEAD: Normal with no signs of head trauma. EYES: PERRLA, EOMI, conjunctiva normal, no discharge. ENT: Hearing grossly intact, normal oropharynx. RESPIRATORY: Clear breath sounds bilaterally. No wheezes, rales, or rhonchi. C/V: Regular rate and rhythm. S1 and S2 auscultated. No peripheral edema. Peripheral pulses 2+ and intact throughout. ABD: Abd is soft, nontender, nondistended EXT: No Shortening of the right lower extremity. Tenderness palpation over the lateral medial aspect of the right hip. No obvious deformities. Mild tenderness to palpation along the joint lines of the right knee. No decreased range of motion the right knee or right ankle. Unable to move the right hip secondary to pain. SKIN: No rashes or lesions observed on exposed skin. NEURO: Alert and oriented 4. No focal sensory strength deficits. Neurovascular intact in the right lower extremity. Limitations: physical limitation Course Vital Signs 10/17/21 10/17/21 16:53 18:57 Temperature 97.7 F Pulse Rate 69 68 Respiratory 18 16 Rate Blood Pressure 136/58 143/53 O2 Sat by Pulse 97 98 Oximetry Medical Decision Making - Medical Decision Making Based on the patient's presentation and physical exam, I'm concerned for bony traumatic injury the patient's right hip or knee. X-rays will be obtained. She'll be given IV pain medications. She was in agreement this plan. X-rays revealed no acute injury the patient's right knee. Chest x-ray shows no acute cardiopulmonary process. Patient does have a valgus impacted right subcapital femoral neck fracture. I updated the patient on the x-ray findings. She requires surgery. Patient does have prior history with Dr. Russo. I spoke with the on-call physician from that group, Dr. Melissa was in agreement with the admission and will speak with Dr. Russo. Requested medical management. I spoke with the internal medicine physician, Dr. Anaya who will medically manage. Screening EKG was obtained and shows no acute cardiopulmonary process. Screening presurgical laboratory studies attendance shows no acute findings. Patient was therefore admitted in stable condition. Nothing by mouth after midnight. - Lab Data Result diagrams: 10/17/21 18:04 10/17/21 18:04 Lab Results 10/17/21 10/17/21 10/17/21 Range/Units 18:04 18:04 18:04 WBC 7.4 (3.8-10.6) k/uL RBC 4.21 (3.80-5.40) m/uL Hgb 12.4 (11.4-16.0) gm/dL Hct 39.2 (34.0-46.0) % MCV 93.1 (80.0-100.0) fL MCH 29.4 (25.0-35.0) pg MCHC 31.5 (31.0-37.0) g/dL RDW 13.2 (11.5-15.5) % Plt Count 286 (150-450) k/uL MPV 8.4 Neutrophils % 66 % Lymphocytes % 27 % Monocytes % 5 % Eosinophils % 1 % Basophils % 0 % Neutrophils # 4.9 (1.3-7.7) k/uL Lymphocytes # 2.0 (1.0-4.8) k/uL Monocytes # 0.4 (0-1.0) k/uL Eosinophils # 0.1 (0-0.7) k/uL Basophils # 0.0 (0-0.2) k/uL PT 9.8 (9.0-12.0) sec INR 0.9 (<1.2) APTT 22.9 (22.0-30.0) sec Sodium 137 (137-145) mmol/L Potassium 4.2 (3.5-5.1) mmol/L Chloride 106 (98-107) mmol/L Carbon Dioxide 26 (22-30) mmol/L Anion Gap 5 mmol/L BUN 17 (7-17) mg/dL Creatinine 1.00 (0.52-1.04) mg/dL Est GFR (CKD-EPI)AfAm 63 (>60 ml/min/1.73 sqM) Est GFR (CKD-EPI)NonAf 54 (>60 ml/min/1.73 sqM) Glucose 85 (74-99) mg/dL Calcium 8.9 (8.4-10.2) mg/dL - EKG Data -: EKG Interpreted by Me EKG Comments: 12-lead Electrocardiogram Interpretation Note EKG was reviewed and interpreted by myself. 12-lead ECG performed at 1813 is interpreted by me as revealing normal sinus rhythm at a rate of default value beats per minute. 68 axis is normal. [place] interval is 194 ms, QRS duration is 98 ms, QTc is 427 ms.. There were no ST or T wave abnormalities to suggest myocardial ischemia or injury. R wave progression across the precordium was satisfactory. By my interpretation this EKG is non-diagnostic for acute ischem ia. Disposition Clinical Impression: Fracture of femoral neck, right Disposition: ADMITTED IP TO THIS HOSP Condition: Stable Time of Disposition: 18:05
[2021-10-17 18:53] LABS: INR 0.9 (<1.2); Prothrombin Time 9.8 sec (9.0-12.0)
[2021-10-17 19:10] LABS: Partial Thromboplastin Time 22.9 sec (22.0-30.0)
[2021-10-17] MEDS: SODIUM CHLORIDE 0.9% 1,000 ML IV SCH (19:49)
[2021-10-17] MEDS: HEPARIN SODIUM,PORCINE/PF 5,000 UNIT/0.5 ML SYRINGE SQ SCH (20:54)
[2021-10-17] MEDS: TEMAZEPAM 15 MG CAP PO PRN (20:54)
[2021-10-17] MEDS ORDERED: hydrOXYzine HCL 25 MG TAB PO PRN (21:00)
[2021-10-17] MEDS ORDERED: KETOROLAC 15 MG/ML 1 ML VIAL IVP STA (23:02)
[2021-10-17] MEDS ORDERED: ACETAMINOPHEN TAB 325 MG TAB PO PRN (23:02)
[2021-10-18] MEDS: MORPHINE SULFATE 2 MG/ML SYRINGE IV PRN ×6 (04:31→22:09)
[2021-10-18] MEDS: SODIUM CHLORIDE 0.9% 1,000 ML IV SCH ×4 (04:32→20:35)
[2021-10-18 06:57] LABS: Basophils % (A) 0 %; Eosinophils # (A) 0.1 k/uL (0-0.7); Eosinophils % (A) 1 %; HCT 37.6 % (34.0-46.0); HGB 12.3 gm/dL (11.4-16.0); Lymphocytes # (A) 0.8 k/uL (1.0-4.8); Lymphocytes % (A) 17 %; MCH 31.2 pg (25.0-35.0); MCHC 32.7 g/dL (31.0-37.0); MCV 95.3 fL (80.0-100.0); Mean Platelet Volume 7.7; Monocytes # (A) 0.1 k/uL (0-1.0); Monocytes % (A) 3 %; Neutrophils # (A) 3.7 k/uL (1.3-7.7); Neutrophils % (A) 78 %; Platelet Count 217 k/uL (150-450); RBC 3.95 m/uL (3.80-5.40); RDW 13.8 % (11.5-15.5); WBC 4.7 k/uL (3.8-10.6)
[2021-10-18 07:06] LABS: African American GFR (CKD) 73 (>60 ml/min/1.73 sqM); Anion Gap 1 mmol/L; Blood Urea Nitrogen 13 mg/dL (7-17); Calcium 8.1 mg/dL (8.4-10.2); Carbon Dioxide 27 mmol/L (22-30); Chloride 111 mmol/L (98-107); Glucose 98 mg/dL (74-99); Non-African American GFR(CKD) 64 (>60 ml/min/1.73 sqM); Potassium 4.5 mmol/L (3.5-5.1); Sodium 139 mmol/L (137-145)
[2021-10-18] MEDS: HEPARIN SODIUM,PORCINE/PF 5,000 UNIT/0.5 ML SYRINGE SQ SCH (07:36)
[2021-10-18] MEDS: CHOLECALCIFEROL 25 MCG (1000 IU) TABLET PO SCH (08:01)
[2021-10-18] MEDS: CALCIUM CARBONATE 500 MG CHEWABLE PO SCH (08:01)
[2021-10-18] MEDS: FOLIC ACID-VIT B COMPLEX-VIT C 1 CAP PO SCH (08:01)
[2021-10-18] MEDS: polyethylene glycoL 3350 17 GM POWD.PACK PO SCH (08:01)
--- NOTE | 2021-10-18 09:44 | P.HPOR ---
History of Present Illness H&P Date: 10/18/21 Chief Complaint: Right hip fracture Patient is a 68-year-old female who presented to [facility] on 10/18/2021 after falling at home. Patient states that she tripped over a leg of a chair which caused. Patient fell directly on her right side. Patient was u nable to weight bear after the injury. She was brought to [facility] by EMS. Upon arrival, imaging and lab test were done. This demonstrated a impacted right femoral neck fracture. Orthopedic team was contacted, patient was admitted under our care with plan for surgical interven tion. Patient was evaluated today at bedside, she is on the medical/surgical floor. She is resting comfortably and appears to be in no acute distress. She notes groin pain with movement of the right lower extremity. She denies any pain involving the right knee, lower leg, foot or ankle. She denies any left lower extremity pain. She denies any bilateral lower extremity pain. Denies any new onset cervical, thoracic or lumbar pain. Patient has a history of a right total knee arthroplasty that was done by Dr. Russo June 2020. 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 Past Anesthesia/Blood Transfusion Reactions: No Reported Reaction Past Psychological History: No Psychological Hx Reported Smoking Status: Former smoker Past Alcohol Use History: None Reported Additional Past Alcohol Use History / Comment(s): Quit smoking 35 yrs ago. Past Drug Use History: None Reported - Past Family History Mother Family Medical History: Cancer Brother(s) Family Medical History: Cancer Sister(s) Family Medical History: Cancer Medications and Allergies Home Medications Medication Instructions Recorded Confirmed Type Calcium Carbonate [Calcium] 600 mg PO DAILY 10/17/21 10/17/21 History Cholecalciferol [Vitamin D3 (25 50 mcg PO DAILY 10/17/21 10/17/21 History Mcg = 1000 Iu)] Ibuprofen [Motrin] 800 mg PO TID PRN 10/17/21 10/17/21 History Temazepam [Restoril] 30 mg PO HS 10/17/21 10/17/21 History Vitamin B Complex 1 cap PO DAILY 10/17/21 10/17/21 History hydrOXYzine HCL [Atarax] 25 mg PO DIRECTED@2100 PRN 10/17/21 10/17/21 History polyethylene glycoL 3350 [Miralax] 17 gm PO DAILY 10/17/21 10/17/21 History Allergies Allergy/AdvReac Type Severity Reaction Status Date / Time No Known Allergies Allergy Verified 10/17/21 16:53 Physical Examination Right lower extremity: Obvious shortening of the extremity is noted when compared to the contralateral side well-healed incision over the anterior aspect of the knee No significant erythema or soft tissue swelling is present throughout the extremity Motion is very limited at the hip due to pain, she is unable to straight leg raise. She can extend and bend the knee with minimal difficulty, this does cause pain in the hip. Plantar flexion, dorsiflexion, EHL, FHL are intact Calf is soft, no tenderness with palpation Sensory exam to light touch throughout the extremity is intact Dorsalis pedis pulses 2+ Results - Labs Labs: Abnormal Lab Results - Last 24 Hours (Table) 10/18/21 10/18/21 Range/Units 06:23 06:23 Lymphocytes # 0.8 L (1.0-4.8) k/uL Chloride 111 H (98-107) mmol/L Calcium 8.1 L (8.4-10.2) mg/dL H & H 10/17/21 10/18/21 Range/Units 18:04 06:23 Hgb 12.4 12.3 (11.4-16.0) gm/dL Hct 39.2 37.6 (34.0-46.0) % Coagulation 10/17/21 Range/Units 18:04 INR 0.9 (<1.2) Result Diagrams: 10/18/21 06:23 10/18/21 06:23 - Diagnostic results Hip x-ray: report reviewed, image reviewed (X-rays of the right hip do demonstrate a impacted right femoral neck fracture) Knee x-ray: report reviewed, image reviewed (Images demonstrate total knee arthroplasty, stable appearing components. No obvious lucencies) Assessment and Plan Assessment: Right femoral neck fracture Status post fall from standing Previous right total knee arthroplasty, stable components Plan: I was able to discuss the case with my attending Dr. Russo. I was able to discuss treatment options with the patient today at bedside. We would like to proceed with a direct anterior right total hip arthroplasty. Risks and benefits of the procedure were discussed with the patient, this too including but not excluded infection, blood loss, neurovascular injury, development of blood clots, inadequate healing of bone, pain and stiffness, need for subsequent surgery. Patient is in good understanding and would like to proceed. Consent will be obtained prior to procedure Continue nothing by mouth diet at this time Medical recommendations DVT prophylaxis, patient has received heparin during her hospital stay. We'll restart after surgery, likely transition to aspirin 81 mg twice a day discharge PT/OT evaluation after surgery Discharge planning: Anticipate discharge to home with home health care when stable Time with Patient: Less than 30
[2021-10-18] MEDS ORDERED: IV FLUID CONTINUATION 950 ML IV ONE (14:46)
[2021-10-18] MEDS ORDERED: TRANEXAMIC ACID IN NACL,ISO-OS 1,000 MG in SALINE 1 100ML.BAG IVPB PRN ×2 (14:59→15:02)
[2021-10-18] MEDS ORDERED: ONDANSETRON 4 MG/2 ML VIAL ONE (15:06)
[2021-10-18] MEDS ORDERED: PHENYLEPHRINE-0.9% NACL SYG 1,000 MCG/10 ML SYRINGE ONE (15:34)
[2021-10-18] MEDS ORDERED: MIDAZOLAM 2 MG/2 ML VIAL ONE (15:34)
[2021-10-18] MEDS ORDERED: PROPOFOL 10 MG/ML 20 ML VIAL IV ONE (15:34)
[2021-10-18] MEDS ORDERED: KETAMINE 10 MG/ML 20 ML VIAL ONE (15:34)
[2021-10-18] MEDS ORDERED: TRANEXAMIC ACID IN NACL,ISO-OS 1,000 MG/100 ML BAG ONE (15:34)
--- NOTE | 2021-10-18 16:08 | P.CONS ---
History of Present Illness - Reason for Consult Consult date: 10/18/21 - History of Present Illness This is a pleasant 76 year old female who presents to the hospital with right hip pain after a mechanical fall. Patient reports she tripped over the leg of a chair and fell on her right hip. She denies dizziness or lighteadedness prior to fall. Patient follows with Dr. Srinivasa Gonzalez in the primary care setting. Medical history includes cancer, osteoarthritis with chronic back pain. She sees Dr Rush with pain management services for injections in her back and she also follows with Dr Russo for hip injections. She quit smoking 35 years ago and she takes motrin as needed for pain at home, she also takes restoril at home as needed for insomnia. No reported history of heart disease, hypertension, diabetes. Hip Pelvis Xray on admission shows valgus impacted right subcapital femoral neck fracture. EKG on admission shows sinus rhythm heart rate [address] or T wave abnormalities. QT interval 427. Labs are nondiagnostic, unremarkable blood count panel, eletrolytes within normal limits. Blood pressure 126/72. Patient is admitted to orthopedics and is pending surgical repair left hip fracture. Medically she is stable for surgery. REVIEW OF SYSTEMS: CONSTITUTIONAL: No fever, no malaise, no fatigue. HEENT: No recent visual problems or hearing problems. Denied any sore throat. CARDIOVASCULAR: No chest pain, orthopnea, PND, no palpitations, no syncope. PULMONARY: No shortness of breath, no cough, no hemoptysis. GASTROINTESTINAL: No diarrhea, no nausea, no vomiting, no abdominal pain. NEUROLOGICAL: No headaches, no weakness, no numbness. HEMATOLOGICAL: Denies any bleeding or petechiae. GENITOURINARY: Denies any burning micturition, frequency, or urgency. MUSCULOSKELETAL/RHEUMATOLOGICAL: Reports right hip pain no numbness or tingling ENDOCRINE: Denies any polyuria or polydipsia. The rest of the 14-point review of systems is negative. PHYSICAL EXAMINATION: GENERAL: The patient is alert and oriented x3, not in any acute distress. Well developed, well nourished. HEENT: Pupils are round and equally reacting to light. EOMI. No scleral icterus. No conjunctival pallor. Normocephalic, atraumatic. No pharyngeal erythema. No thyromegaly. CARDIOVASCULAR: S1 and S2 present. No murmurs, rubs, or gallops. PULMONARY: Chest is clear to auscultation, no wheezing or crackles. ABDOMEN: Soft, nontender, nondistended, normoactive bowel sounds. No palpable organomegaly. MUSCULOSKELETAL: No joint swelling or deformity. EXTREMITIES: No cyanosis, clubbing, or pedal edema. NEUROLOGICAL: Gross neurological examination did not reveal any focal deficits. SKIN: No rashes. Assessment and plan Assessment Right femoral neck hip fracture secondary to mechanical fall History osteoarthritis History of basal cell skin cancer on chest and legs Insomnia takes restoril and atarax as needed Former smoker quit 35 years ago GI Prophylaxis DVT Prophyalxis as per primary Plan Continue with IV hydration while NPO Patient is cleared medically to under surgical repair of hip fracture she is considered low risk. EKG reviewed Labs reviewed. Resume appropriate home medications. Thank you kindly for this consultation The impression and plan of care has been dictated by Jessica Wong Nurse Practitioner as directed. Dr. Zaida MD I have performed a history and physical examination and medical decision making of this patient, discussed the same with the dictator, and agree with the dictators assessment and plan as written, documented as a scribe. Based on total visit time, I have performed more than 50% of this visit. 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 Past Anesthesia/Blood Transfusion Reactions: No Reported Reaction Past Psychological History: No Psychological Hx Reported Smoking Status: Former smoker Past Alcohol Use History: None Reported Additional Past Alcohol Use History / Comment(s): Quit smoking 35 yrs ago. Past Drug Use History: None Reported - Past Family History Mother Family Medical History: Cancer Brother(s) Family Medical History: Cancer Sister(s) Family Medical History: Cancer Medications and Allergies Home Medications Medication Instructions Recorded Confirmed Type Calcium Carbonate [Calcium] 600 mg PO DAILY 10/17/21 10/17/21 History Cholecalciferol [Vitamin D3 (25 50 mcg PO DAILY 10/17/21 10/17/21 History Mcg = 1000 Iu)] Ibuprofen [Motrin] 800 mg PO TID PRN 10/17/21 10/17/21 History Temazepam [Restoril] 30 mg PO HS 10/17/21 10/17/21 History Vitamin B Complex 1 cap PO DAILY 10/17/21 10/17/21 History hydrOXYzine HCL [Atarax] 25 mg PO HS PRN 10/17/21 10/18/21 History polyethylene glycoL 3350 [Miralax] 17 gm PO DAILY 10/17/21 10/17/21 History Allergies Allergy/AdvReac Type Severity Reaction Status Date / Time No Known Allergies Allergy Verified 10/18/21 14:46 Physical Exam Vitals: Vital Signs Temp Pulse Pulse Resp BP BP Pulse Ox 10/18/21 08:00 97.8 F 74 16 126/72 96 10/18/21 02:00 97.5 F L 67 17 125/62 93 L 10/17/21 21:08 98.2 F 71 17 135/63 96 10/17/21 18:57 68 16 143/53 98 10/17/21 16:53 97.7 F 69 18 136/58 97 Intake and Output 10/17/21 10/18/21 10/18/21 22:59 06:59 14:59 Intake Total 1200 Output Total 700 Balance 500 Intake: Intake, IV Titration 1200 Amount Sodium Chloride 0.9% 1, 1200 000 ml @ 100 mls/hr IV . Q10H [facility] Rx#:[id number] Oral 0 Output: Urine 700 Other: # Bowel Movements 0 Weight 56.699 kg Results CBC & Chem 7: 10/18/21 06:23 10/18/21 06:23 Labs: Abnormal Lab Results - Last 24 Hours (Table) 10/18/21 10/18/21 Range/Units 06:23 06:23 Lymphocytes # 0.8 L (1.0-4.8) k/uL Chloride 111 H (98-107) mmol/L Calcium 8.1 L (8.4-10.2) mg/dL Assessment and Plan Time with Patient: Less than 30
[2021-10-18] MEDS ORDERED: ceFAZolin 1,000 MG in SODIUM CHLORIDE 0.9% 1,000 ML IRRIGATION ONE (16:14)
[2021-10-18] MEDS ORDERED: HYDROcodone/APAP 5-325MG 1 EACH TAB PO PRN (17:08)
[2021-10-18] MEDS ORDERED: HYDROmorphone 0.5 MG/0.5 ML SYRINGE IVP PRN ×3 (17:08)
[2021-10-18] MEDS ORDERED: NALOXONE 0.4 MG/ML 1 ML VIAL IV PRN (17:08)
--- NOTE | 2021-10-18 17:08 | P.OP ---
Date of Procedure: 10/18/21 Preoperative Diagnosis: Displaced right hip femoral neck fracture Postoperative Diagnosis: Displaced right hip femoral neck fracture Procedure(s) Performed: Direct anterior right total hip arthroplasty Implants: 1. Depuy [place] 135 standard collar size 12 press-fit femoral stem 2. Depuy [place] 52 mm multihole press-fit acetabular shell 3. Depuy pinnacle neutral polyethylene acetabular liner 36 mm ID 52 mm OD 4. Depuy metal femoral head 36 mm -2 Anesthesia: spinal Surgeon: Satish Russo [facility] Consultant #1: Alxei Kidd Estimated Blood Loss (ml): 200 Pathology: none sent (Femoral head) Condition: stable Disposition: PACU Indications for Procedure: 68-year-old patient who was seen with a displaced right hip femoral neck fracture. We discussed treatment options with the patient. I reviewed direct anterior right total hip arthroplasty. I discussed the procedure, risks, complications and recovery. Patient and family were agreeable, consent was obtained. Operative Findings: see description of procedure Description of Procedure: The patient was taken to the operative suite. Patient underwent a spinal anesthetic by the department of anesthesia. Patient was then transferred to the [place] table. Patient was given preoperative IV antibiotics and TXA. Both lower extremities were placed in standard leg spars. The hip was then prepped and draped in the normal sterile orthopedic fashion. A standard anterior incision was made beginning 3 cm lateral and 1 cm distal to the ASIS extending 10 cm. Dissection was then carried down through the subcutaneous soft tissues down to the fascia overlying the tensor fascia kota. An incision was now made through the fascia. Careful dissection was taken down exposing the tensor fascia kota muscle. A Cobra retractor was now placed along the medial femoral neck and a second one along the lateral femoral neck. The venous circumflex vessels were now identified, cauterized and clipped. We identified the anterior hip capsule. An incision was made through the hip capsule along the lateral border. I performed a partial anterior capsulectomy. Retractors were now placed around the femoral neck itself. A femoral neck cut was now made with a sagittal saw. It was completed with an osteotome at the lateral neck area. The femoral head was now removed without difficulty. The extremity was now rotated to 60 of external rotation. It was locked in position. Residual labrum was now debrided out. Serial reaming was performed of the acetabulum while Helio RAMÍREZ assisted holding an anterior retractor for exposure. Once we reached the appropriate size and a trial was position and fit nicely. The appropriate size was now chosen opened and made available. It was introduced into the acetabulum without difficulty. The C-arm/fluoroscopy was now brought into the operative field. We made sure we had a true AP pelvic view. We now under direct C- arm/fluoroscopy introduced into the acetabular component with appropriate version and inclination. I held the cup in appropriate position well Helio RAMÍREZ used a mallet to seat the acetabular component. I noted the component now to be well seated and stable. Acetabular cup introduce her was removed. The C-arm was pulled back. An appropriate liner was introduced and clicked into position. It was felt to be stable. At this point retractors were removed. The extremity was now placed into 130 external rotation with no traction. The leg was now dropped to the ground and adducted. Appropriate retractors were now positioned along the proximal femur. We also placed our femoral look into position. Additional capsular releasing was performed to gain access to the proximal femur. We now used a box osteotome. A canal finder was now utilized. Serial broaching was now performed with the assistance of Helio RAMÍREZ tapping the broaches down with a mallet while held the broach in appropriate rotation and position. This was done until we reached the appropriate size with good overall rotational stability. Appropriate calcar planing was performed. A trial head/neck was placed into position. The hip was now reduced. The C-ar m/fluoroscopy was brought back into the operative field. I obtained an AP pelvis which demonstrated adequate leg length alignment. The trial components were visualized and appeared appropriately sized and appropriately positioned. The C-arm/fluoroscopy was pulled back. Retractors were repositioned and the hip was dislocated. The leg was again taken down to the ground and adducted. Appropriate retractors were repositioned as well as the femoral hook. All trial components were removed. The femoral implant was opened along with the femoral head. The femoral implant was introduced on the appropriate handle into our pre-broached area. I held the component position well Helio RAMÍREZ used a mallet to seat the femoral component. The femoral component was now noted to be well seated and stable.. The femoral head was introduced with good positioning and fixation noted. Retractors were now removed. The hip was now reduced. There appeared be good positioning of the hip confirmed on intraoperative fluoroscopy. Spot films were obtained to document this. A second gram of TXA was given. The deep and superficial soft tissues were infiltrated with local analgesic. Bipolar cautery had been utilized intermittently through the procedure for hemostasis. The wound was irrigated copiously with pulse lavage mechanical irrigation. The fascia was repaired with Vicryl suture. The s ubcutaneous soft tissues were repaired in layers with Vicryl suture. The skin was approximated with pernio/Dermabond. Sterile dressings were applied. Patient was then awakened, transferred to a bed and taken to recovery in stable condition. Helio RAMÍREZ assisted with the complex procedure.
--- NOTE | 2021-10-18 17:24 | FL ---
Intraoperative/procedural fluoroscopic services were provided. Total fluoroscopy time is 13.2 seconds with a total of 2 submitted images to PACS. Please see the operative/procedural note for further det ails.
[2021-10-18] MEDS: SENNOSIDES-DOCUSATE SODIUM 1 EACH TAB PO SCH (20:34)
[2021-10-18] MEDS: ONDANSETRON 4 MG/2 ML VIAL IVP PRN (22:09)
[2021-10-19] MEDS: MORPHINE SULFATE 2 MG/ML SYRINGE IV PRN ×3 (03:47→20:57)
[2021-10-19] MEDS: SODIUM CHLORIDE 0.9% 1,000 ML IV SCH ×2 (03:50→20:57)
[2021-10-19] MEDS: HYDROcodone/APAP 5-325MG 1 EACH TAB PO PRN ×2 (05:09→10:53)
[2021-10-19] MEDS: ONDANSETRON 4 MG/2 ML VIAL IVP PRN (05:25)
[2021-10-19] MEDS ORDERED: ONDANSETRON 4 MG/2 ML VIAL IVP PRN (08:54)
[2021-10-19] MEDS ORDERED: FAMOTIDINE 20 MG/2 ML VIAL IV SCH (09:00)
[2021-10-19] MEDS: FOLIC ACID-VIT B COMPLEX-VIT C 1 CAP PO SCH (09:58)
[2021-10-19] MEDS: CALCIUM CARBONATE 500 MG CHEWABLE PO SCH (09:58)
[2021-10-19] MEDS: CHOLECALCIFEROL 25 MCG (1000 IU) TABLET PO SCH (09:58)
[2021-10-19] MEDS: FAMOTIDINE 20 MG TAB PO SCH (09:58)
[2021-10-19] MEDS: ENOXAPARIN 40 MG/0.4 ML SYRINGE SQ SCH (09:59)
[2021-10-19] MEDS: polyethylene glycoL 3350 17 GM POWD.PACK PO SCH (10:01)
--- NOTE | 2021-10-19 10:08 | P.PN ---
Subjective Progress Note Date: 10/19/21 Principal diagnosis: Status post direct anterior right total hip arthroplasty Patient was evaluated at bedside today, she is resting in her hospital bed. I was contacted by nursing this morning, patient was having a lot of nausea. We did adjust her medications for that. Patient with physical therapy but was very lightheaded and nauseous. Denies chest pain or shortness of breath at this time. States that she was having some discomfort in the right lower extremity but it is tolerable. Objective - Vital Signs Vital signs: Vital Signs Temp 98.3 F 10/19/21 07:17 Pulse 76 10/19/21 07:17 Resp 14 10/19/21 07:17 BP 147/55 10/19/21 07:17 Pulse Ox 96 10/19/21 07:17 FiO2 Intake & Output 10/18/21 10/19/21 10/19/21 18:59 06:59 18:59 Intake Total 1001 1180 Output Total 400 700 Balance 601 480 Intake: IV 1001 Intake, IV Titration 590 Amount Sodium Chloride 0.9% 1, 590 000 ml @ 70 mls/hr IV . [id number] [facility] Rx#:[id number] Oral 590 Output: Urine 200 700 Estimated Blood Loss 200 Other: Voiding Method Indwelling Catheter Indwelling Catheter - Exam Right lower extremity: Incision is clean, dry, and intact. The foam dressing is in good condition. There is minimal soft tissue swelling and ecchymosis surrounding the medial and lateral aspects of the incision. Calf is soft, no tenderness with palpation. Plantar flexion, dorsiflexion, EHL, FHL are intact. Sensory exam to light touch throughout the extremity is intact, dorsal pedis pulses 2+. - Labs CBC & Chem 7: 10/18/21 06:23 10/18/21 06:23 Assessment and Plan Assessment: Postoperative day #1 status post direct anterior total hip arthroplasty Right femoral neck fracture, status post fall from standing Plan: Pain control, continue with current medications as needed. Avoid IV narcotics unless severe pain. Continue Zofran as needed for nausea DVT prophylaxis, continue subcu medication during inpatient stay. Transition to 81 mg aspirin twice a day for 30 days of discharge Wound care, leave dressing place Encourage incentive spirometer Continue PT, weightbearing as tolerated with walker Medical recommendations Discharge planning: Patient will remain in hospital at least overnight to monitor nausea, hopeful discharge to home tomorrow with home health care
[2021-10-19 11:04] LABS: Basophils # (A) 0.02 X 10*3/uL (0.00-0.10); Basophils % (A) 0.2 %; Eosinophils # (A) 0.03 X 10*3/uL (0.04-0.35); Eosinophils % (A) 0.3 %; HCT 30.6 % (37.2-46.3); Immature Grans, Automated 0.2 %; Lymphocytes # (A) 0.74 X 10*3/uL (0.90-5.00); Lymphocytes % (A) 8.1 %; MCH 30.4 pg (27.0-32.0); MCHC 32.7 g/dL (32.0-37.0); Mean Platelet Volume 10.7 fL (9.5-12.2); Monocytes # (A) 0.48 X 10*3/uL (0.20-1.00); Monocytes % (A) 5.2 %; NRBC Per 100 WBC 0 /100 WBCS (0.0-0.0); Neutrophils # (A) 7.88 X 10*3/uL (1.80-7.70); Platelet Count 180 X 10*3/uL (140-440); RBC 3.29 X 10*6/uL (4.10-5.20); RDW 14.1 % (11.5-14.5); WBC 9.17 X 10*3/uL (4.50-10.00)
[2021-10-19] MEDS: MULTIVITAMINS, THERA 1 EACH TAB PO SCH (13:08)
--- NOTE | 2021-10-19 18:58 | P.PN ---
Subjective Progress Note Date: 10/19/21 This is a pleasant 76 year old female who presents to the hospital with right hip pain after a mechanical fall. Patient reports she tripped over the leg of a chair and fell on her right hip. She denies dizziness or lighteadedness prior to fall. Patient follows with Dr. Srinivasa Gonzalez in the primary care setting. Medical history includes cancer, osteoarthritis with chronic back pain. She sees Dr Rush with pain management services for injections in her back and she also follows with Dr Russo for hip injections. She quit smoking 35 years ago and she takes motrin as needed for pain at home, she also takes restoril at home as needed for insomnia. No reported history of heart disease, hypertension, d iabetes. Hip Pelvis Xray on admission shows valgus impacted right subcapital femoral neck fracture. EKG on admission shows sinus rhythm heart rate [address] or T wave abnormalities. QT interval 427. Labs are nondiagnostic, unremarkable blood count panel, eletrolytes within normal limits. Blood pressure 126/72. Patient is admitted to orthopedics and is pending surgical repair left hip fracture. Medically she is stable for surgery. 10/19/2021 Patient is postoperative day #1 direct anterior right total hip arthroplasty with Dr. Russo. Patient reports not sleeping well last night due to pain and also she had some nausea. She is feeling better today, reports feeling tired. She remains afebrile, blood pressure 147/55, 96% on 2 L nasal cannula, heart rate 76. Encourage incentive spirometry. PHYSICAL EXAMINATION: GENERAL: The patient is alert and oriented x3, not in any acute distress. Well developed, well nourished. HEENT: Pupils are round and equally reacting to light. EOMI. No scleral icterus. No conjunctival pallor. Normocephalic, atraumatic. No pharyngeal erythema. No thyromegaly. CARDIOVASCULAR: S1 and S2 present. No murmurs, rubs, or gallops. PULMONARY: Chest is clear to auscultation, no wheezing or crackles. ABDOMEN: Soft, nontender, nondistended, normoactive bowel sounds. No palpable organomegaly. MUSCULOSKELETAL: No joint swelling or deformity. EXTREMITIES: No cyanosis, clubbing, or pedal edema. NEUROLOGICAL: Gross neurological examination did not reveal any focal deficits. SKIN: No rashes. Post surgical dressing intact. Assessment and plan Assessment Right femoral neck hip fracture secondary to mechanical fall Postoperative day #1 History osteoarthritis History of basal cell skin cancer on chest and legs Insomnia takes restoril and atarax as needed Former smoker quit 35 years ago GI Prophylaxis DVT Prophyalxis as per primary Full Code Plan Continue IV fluids discontinue when tolerating increase in oral intake Labs reviewed today Continue to encourage incentive spirometry PT consultation recommending home with HC pending clinical course Thank you kindly for this consultation The impression and plan of care has been dictated by Jessica Wong, Nurse Practitioner as directed. Dr. Zaida MD I have performed a history and physical examination and medical decision making of this patient, discussed the same with the dictator, and agree with the dictators assessment and plan as written, documented as a scribe. Based on total visit time, I have performed more than 50% of this visit. Objective - Vital Signs Vital signs: Vital Signs Temp 98.3 F 10/19/21 07:17 Pulse 76 10/19/21 07:17 Resp 14 10/19/21 07:17 BP 147/55 10/19/21 07:17 Pulse Ox 96 10/19/21 07:17 FiO2 Intake & Output 10/18/21 10/19/21 10/19/21 18:59 06:59 18:59 Intake Total 1001 1180 Output Total 400 700 Balance 601 480 Intake: IV 1001 Intake, IV Titration 590 Amount Sodium Chloride 0.9% 1, 590 000 ml @ 70 mls/hr IV . [id number] [facility] Rx#:[id number] Oral 590 Output: Urine 200 700 Estimated Blood Loss 200 Other: Voiding Method Indwelling Catheter Indwelling Catheter - Labs CBC & Chem 7: 10/19/21 07:00 10/18/21 06:23 Assessment and Plan Time with Patient: Less than 30
[2021-10-19] MEDS: TEMAZEPAM 15 MG CAP PO PRN (20:56)
[2021-10-19] MEDS: SENNOSIDES-DOCUSATE SODIUM 1 EACH TAB PO SCH (20:56)
[2021-10-20] MEDS: HYDROcodone/APAP 5-325MG 1 EACH TAB PO PRN ×2 (00:09→08:23)
[2021-10-20 07:51] VITALS: BP 124/68; PULSE 86; TEMP 99.6
[2021-10-20 08:16] VITALS: RESP 18
[2021-10-20] MEDS: polyethylene glycoL 3350 17 GM POWD.PACK PO SCH (09:46)
[2021-10-20] MEDS: ENOXAPARIN 40 MG/0.4 ML SYRINGE SQ SCH (09:46)
[2021-10-20] MEDS: FAMOTIDINE 20 MG TAB PO SCH (09:47)
[2021-10-20] MEDS: FOLIC ACID-VIT B COMPLEX-VIT C 1 CAP PO SCH (09:47)
[2021-10-20] MEDS: CHOLECALCIFEROL 25 MCG (1000 IU) TABLET PO SCH (09:47)
[2021-10-20] MEDS: CALCIUM CARBONATE 500 MG CHEWABLE PO SCH (09:47)
--- NOTE | 2021-10-20 11:25 | P.DS ---
Providers Date of admission: 10/17/21 18:33 Expected date of discharge: 10/20/21 Attending physician: Satish Russo Consults: 10/17/21 18:33 Consult Physician Routine Consulting Provider: Selina Anaya Consult Reason/Comments: medical management Do you want consulting provider notified?: Already Contacted Primary care physician: Srinivasa Gonzalez MD Hospital Course: Date of admission: 10/18/2021 Date of discharge: 10/20/2021 Admission diagnosis: Right hip femoral neck fracture Discharge diagnosis: Same Attending physician: Dr. Russo Surgical procedures: Right total hip arthroplasty Brief history: Patient is a 76-year-old female with a history of right hip femoral neck fracture status post fall. At this point patient has failed conservative treatment measures and has opted to proceed with a elective right total hip arthroplasty. Hospital course: Details of patient's surgery can be found in operative report. Patient tolerated the procedure well and was subsequently transported to orthopedic floor. Patient's orthopeidc and medical care was provided daily. Patient had daily laboratory tests performed for evaluation of overall blood counts. Patient had daily physical therapy to include strengthening range of motion as well as education with walker ambulation. Patient was treated with Lovenox for their postoperative DVT prophylaxis during their inpatient stay. Patient was noted to have a relatively uneventful postoperative course. Patient reported satisfactory pain control with oral pain medications by postoperative day 2. Patient showed satisfactory progress with physical therapy. Patient moved steadily through the program and had no difficulty meeting the goals by postoperative day 2. Given patient's otherwise satisfactory course and having met physical therapy goals, plan is to discharge patient home with health services on postoperative day 2. Discharge condition/disposition: Patient will be discharged home with health services in stable condition. Discharge medications: Instructions are given on resumption of patient's normal daily medications per primary care recommendation, in addition patient will be prescribed []. Orthopedic Discharge Instructions: 1. Wound care and infection precautions, keep incision dry and covered while showering, no lotions, creams, moisturizers. No soaking, pools, hot tubs. Do not scrub over incision. 2. Weight-bear as tolerated with walker / cane until follow-up. 3. Ice and elevate when necessary. Do not exceed 20 minutes per hour with ice pack. 4. Utilize compression sleeve until seen at first follow up appointment. 5. Pain meds and anticoagulants per prescription. 6. Pain medication has potential to cause constipation. Increase oral fluid and fiber intake. Contact primary care provider if you have not had a bowel movement within 48 hours after discharge. 7. No anti-inflammatory medication until discussed at first post operative visit, this including Motrin, Aleve, Mobic, Diclofenac. 8. Follow up in office at 2 weeks postop with Helio Kidd PA-C / Keith Arredondo PA-C 9. Follow up with your primary care doctor 7-10 days after discharge. 10. Contact [facility] with any questions, . Keep silver foam dressing on until 10/25/2021. While showering with dressing on, cover dressing with Saran wrap. Medications: Fulda; aspirin 81 mg twice a day 30 days; Colace Assessment: Right hip femoral neck fracture Procedures: Right total hip arthroplasty Patient Condition at Discharge: Stable Plan - Discharge Summary Discharge Rx Participant: No New Discharge Prescriptions: New HYDROcodone/APAP 5-325MG [Fulda 5-325] 1 - 2 tab PO Q6HR PRN #32 tab PRN Reason: Pain Aspirin [Adult Low Dose Aspirin EC] 81 mg PO BID #60 tab Docusate [Colace] 100 mg PO DAILY #30 capsule No Action Vitamin B Complex 1 cap PO DAILY Cholecalciferol [Vitamin D3 (25 Mcg = 1000 Iu)] 50 mcg PO DAILY Temazepam [Restoril] 30 mg PO HS Calcium Carbonate [Calcium] 600 mg PO DAILY polyethylene glycoL 3350 [Miralax] 17 gm PO DAILY hydrOXYzine HCL [Atarax] 25 mg PO HS PRN PRN Reason: Anxiety/Insomnia Ibuprofen [Motrin] 800 mg PO TID PRN PRN Reason: Pain Discharge Medication List Calcium Carbonate [Calcium] 600 mg PO DAILY 10/17/21 [History] Cholecalciferol [Vitamin D3 (25 Mcg = 1000 Iu)] 50 mcg PO DAILY 10/17/21 [History] Ibuprofen [Motrin] 800 mg PO TID PRN 10/17/21 [History] Temazepam [Restoril] 30 mg PO HS 10/17/21 [History] Vitamin B Complex 1 cap PO DAILY 10/17/21 [History] hydrOXYzine HCL [Atarax] 25 mg PO HS PRN 10/17/21 [History] polyethylene glycoL 3350 [Miralax] 17 gm PO DAILY 10/17/21 [History] Aspirin [Adult Low Dose Aspirin EC] 81 mg PO BID #60 tab 10/20/21 [Rx] Docusate [Colace] 100 mg PO DAILY #30 capsule 10/20/21 [Rx] HYDROcodone/APAP 5-325MG [Fulda 5-325] 1 - 2 tab PO Q6HR PRN #32 tab 10/20/21 [Rx] Follow up Appointment(s)/Referral(s): Ernestina Thomas [NON-STAFF] - As Needed Srinivasa Gonzalez MD [Primary Care Provider] - 1-2 days Alexi Kidd PAC [PHYSICIAN RHIT] - 2 Weeks Patient Instructions/Handouts: Total Hip Replacement (DC) Activity/Diet/Wound Care/Special Instructions: Orthopedic Discharge Instructions: 1. Wound care and infection precautions, keep incision dry and covered while showering, no lotions, creams, moisturizers. No soaking, pools, hot tubs. Do not scrub over incision. 2. Weight-bear as tolerated with walker / cane until follow-up. 3. Ice and elevate when necessary. Do not exceed 20 minutes per hour with ice pack. 4. Utilize compression sleeve until seen at first follow up appointment. 5. Pain meds and anticoagulants per prescription. 6. Pain medication has potential to cause constipation. Increase oral fluid and fiber intake. Contact primary care provider if you have not had a bowel movement within 48 hours after discharge. 7. No anti-inflammatory medication until discussed at first post operative visit, this including Motrin, Aleve, Mobic, Diclofenac. 8. Follow up in office at 2 weeks postop with Helio Kidd PA-C / Keith Arredondo PA-C 9. Follow up with your primary care doctor 7-10 days after discharge. 10. Contact [facility] with any questions, . Keep silver foam dressing on until 10/25/2021. While showering with dressing on, cover dressing with Saran wrap. Medications: Fulda; aspirin 81 mg twice a day 30 days; Colace Discharge Disposition: HOME WITH HOME HEALTH SERVICES
[2021-10-20] MEDS: MULTIVITAMINS, THERA 1 EACH TAB PO SCH (12:08)
--- NOTE | 2021-10-20 13:28 | P.PN ---
Subjective Progress Note Date: 10/20/21 This is a pleasant 76 year old female who presents to the hospital with right hip pain after a mechanical fall. Patient reports she tripped over the leg of a chair and fell on her right hip. She denies dizziness or lighteadedness prior to fall. Patient follows with Dr. Srinivasa Gonzalez in the primary care setting. Medical history includes cancer, osteoarthritis with chronic back pain. She sees Dr Rush with pain management services for injections in her back and she also follows with Dr Russo for hip injections. She quit smoking 35 years ago and she takes motrin as needed for pain at home, she also takes restoril at home as needed for insomnia. No reported history of heart disease, hypertension, d iabetes. Hip Pelvis Xray on admission shows valgus impacted right subcapital femoral neck fracture. EKG on admission shows sinus rhythm heart rate [address] or T wave abnormalities. QT interval 427. Labs are nondiagnostic, unremarkable blood count panel, eletrolytes within normal limits. Blood pressure 126/72. Patient is admitted to orthopedics and is pending surgical repair left hip fracture. Medically she is stable for surgery. 10/19/2021 Patient is postoperative day #1 direct anterior right total hip arthroplasty with Dr. Russo. Patient reports not sleeping well last night due to pain and also she had some nausea. She is feeling better today, reports feeling tired. She remains afebrile, blood pressure 147/55, 96% on 2 L nasal cannula, heart rate 76. Encourage incentive spirometry. 10/20/2021 Patient is evaluated today postoperative day #2. Reports improvement in pain to her right thigh. She does have some discomfort to her right knee. Plan for discharge today home with home care. She is tolerating diet, reports no nausea. Temp 99.6, heart rate 86, blood pressure 124/68, 94% room air. She is using incentive spirometer. PHYSICAL EXAMINATION: GENERAL: The patient is alert and oriented x3, not in any acute distress. Well developed, well nourished. HEENT: Pupils are round and equally reacting to light. EOMI. No scleral icterus. No conjunctival pallor. Normocephalic, atraumatic. No pharyngeal erythema. No thyromegaly. CARDIOVASCULAR: S1 and S2 present. No murmurs, rubs, or gallops. PULMONARY: Chest is clear to auscultation, no wheezing or crackles. ABDOMEN: Soft, nontender, nondistended, normoactive bowel sounds. No palpable organomegaly. MUSCULOSKELETAL: No joint swelling or deformity. EXTREMITIES: No cyanosis, clubbing, or pedal edema. NEUROLOGICAL: Gross neurological examination did not reveal any focal deficits. SKIN: No rashes. Post surgical dressing intact. Assessment and plan Assessment Right femoral neck hip fracture secondary to mechanical fall Postoperative day #2 History osteoarthritis History of basal cell skin cancer on chest and legs Insomnia takes restoril and atarax as needed Former smoker quit 35 years ago GI Prophylaxis DVT Prophyalxis as per primary Full Code Plan Chart reviewed Continue current medications Patient is cleared medically for discharge Recommend to continue on bowel regimen while on narcotics Recommend to follow up with PCP Thank you kindly for this consultation The impression and plan of care has been dictated by Jessica Wong Nurse Practitioner as directed. Dr. Zaida MD I have performed a history and physical examination and medical decision making of this patient, discussed the same with the dictator, and agree with the dictators assessment and plan as written, documented as a scribe. Based on total visit time, I have performed more than 50% of this visit. Objective - Vital Signs Vital signs: Vital Signs Temp 99.6 F 10/20/21 07:51 Pulse 86 10/20/21 07:51 Resp 18 10/20/21 02:00 BP 124/68 10/20/21 07:51 Pulse Ox 94 L 10/20/21 07:51 FiO2 Intake & Output 10/19/21 10/20/21 10/20/21 18:59 06:59 18:59 Intake Total 1500 Output Total 500 600 Balance 1000 -600 Intake: Oral 1500 Output: Urine 500 600 Uretheral (Johnson) 500 Other: Voiding Method Indwelling Catheter Toilet Indwelling Catheter # Voids 3 1 # Bowel Movements 1 0 - Labs CBC & Chem 7: 10/19/21 07:00 10/18/21 06:23 Assessment and Plan Time with Patient: Less than 30
--- NOTE | 2021-10-20 13:28 | P.PN ---
Subjective Progress Note Date: 10/20/21 Principal diagnosis: Right hip femoral neck fracture Patient was seen at bedside this morning resting comfortably lying in semirecumbent position. Patient says she did get up earlier this morning with nurse and walk to the bathroom and to shower. Patient says she did ambulate w ith walker. Patient says she does have a walker for home. Patient says she does have a daughter who lives next door to her that can help her at home. Patient denies chest pain, fever, shortness of breath, nausea, vomiting, change in vision, loss of bowel/bladder control. Objective - Vital Signs Vital signs: Vital Signs Temp 99.6 F 10/20/21 07:51 Pulse 86 10/20/21 07:51 Resp 18 10/20/21 02:00 BP 124/68 10/20/21 07:51 Pulse Ox 94 L 10/20/21 07:51 FiO2 Intake & Output 10/19/21 10/20/21 10/20/21 18:59 06:59 18:59 Intake Total 1500 Output Total 500 600 Balance 1000 -600 Intake: Oral 1500 Output: Urine 500 600 Uretheral (Johnson) 500 Other: Voiding Method Indwelling Catheter Toilet Indwelling Catheter # Voids 3 1 # Bowel Movements 1 0 - Exam Right hip: Incision is clean, dry, and intact. The silver foam dressing is in good condition. There is minimal soft tissue swelling and ecchymosis surrounding the medial and lateral aspects of the incision. Calf is soft, no tenderness with palpation. Plantar flexion, dorsiflexion, EHL, FHL are intact. Sensory exam to light touch throughout the extremity is intact, dorsal pedis pulses 2+. - Labs CBC & Chem 7: 10/19/21 07:00 10/18/21 06:23 Assessment and Plan Assessment: 1. Right hip femoral neck fracture Postoperative day #2 status post right total hip arthroplasty Plan: 1. Right hip femoral neck fracture - right total hip arthroplasty 10/18/2021. Patient stable at bedside this morning. Discharge home today with health services. 2. Appreciate medical management 3. Pain management - [place] 4. DVT prophylaxis - going home with aspirin 81 mg twice a day 30 days 5. GI prophylaxis - Colace 6. PT/OT - weightbearing as tolerated with walker 7. Encourage incentive spirometer use 8. Discharge planning - home with health services today Time with Patient: Less than 30
== END 2021-10-20 12:29 | disposition home health service (06) | DRG 522 ==
LOC: EC 16:51 → 4SSUR 18:33
PROVIDERS: ADMIT Orthopaedic Surgery; ATTEND Orthopaedic Surgery
PROC: 0SR902A Replacement of Right Hip Joint with Metal on Polyethylene Synthetic Substitute, Uncemented, Open Approach (ICD-10-PCS; principal; 2021-10-18 07:30)
DX: S72.011A Unspecified intracapsular fracture of right femur, initial encounter for closed fracture (principal); G47.00 Insomnia, unspecified; G89.29 Other chronic pain; M54.9 Dorsalgia, unspecified; M48.50XS Collapsed vertebra, not elsewhere classified, site unspecified, sequela of fracture; M19.90 Unspecified osteoarthritis, unspecified site; Z79.899 Other long term (current) drug therapy; Z96.651 Presence of right artificial knee joint; Z87.891 Personal history of nicotine dependence; Z85.828 Personal history of other malignant neoplasm of skin; W01.0XXA Fall on same level from slipping, tripping and stumbling without subsequent striking against object, initial encounter; Y92.009 Unspecified place in unspecified non-institutional (private) residence as the place of occurrence of the external cause; Z80.9 Family history of malignant neoplasm, unspecified
CPT/HCPCS: 36415; 71045; 73501; 73502; 80048; 85025; 85610; 85730; 86850; 86900; 86901; 88305; 88311; 93005; 96374; 99291

== ENCOUNTER → 2023-05-03 | Outpatient (CLI) | payer MEDICARE, OTHER ==
[2023-05-03 14:44] VITALS: BP 116/70; PULSE 76; RESP 15; TEMP 98.5
--- NOTE | 2023-05-03 15:02 | P.PAINPG ---
PQRS Measure Charge Sheet Comment: HISTORY OF PRESENT ILLNESS: A 77 yr old female as a referral from Dr Gonzalez presents today w severe and chronic LBP x 1 yr secondary to DDD, spondylosis and facet arthropathy without myelopathy for evaluation. Pt states she underwent a BL MBB of the L2-L5 x2 in Nov & Dec [address] Elliot Rush where she experienced 90 % pain relief x 2 days s/p procedures. Pt states pain level is provoked at 9 /10 in intensity, constant, localized in the lower lumbar spine, predominantly axial, achy in character w occasional shooting pain towards the L & R of midline. Pain is provoked by standing for periods > 15 min. Pain is alleviated by PT in 2021, alternating heat & ice, medication s (Tyl, Ibu), chiropractic treatments as needed, repositioning and rest. Oswestry axial pain score at 31. PMH: OA, Basal Cell CA PSH: R Hip Total Arthroplasty (2021), R Knee Arthroscopy SH: Former tobacco use (Quit 37 yrs ago), No ETOH abuse, No illicit drug use FH: Mo- CA. Bro- CA. Sis- Ca. All: See list Meds: See list REVIEW OF ORGAN SYSTEMS: CONSTITUTIONAL: No fevers or chills. No recent weight l oss. NEUROLOGICAL: + numbness and tingling along the distal extremities. No seizure disorders or headaches. MUSCULOSKELETAL: + pain PSYCHIATRIC: Denies current depression or suicidal thoughts. Physical Examinations : Constitutional : Cooperative , not in acute distress . Neurologic : Cranial nerve II to XII intact. No focal neurological deficits. Psychiatric : alert & oriented x 3. Matching mood & appropriate affect. Judgment & insight intact. Musculoskeletal : Cervical Spine Motor strength in the deltoid and biceps: Normal right side. Normal Left side Motor strength biceps and the wrist extensors: Normal right side . Normal left side Motor strength in the triceps muscle: Normal right side. Normal left side Deep tendon reflexes: Normal at the biceps. Normal at Brachioradialis. Normal at triceps Vertebral body tenderness to deep palpation over Cervical facet loading test: positive bilaterally Spurling test: positive bilaterally Neck distraction test: positive bilaterally Allan sign: positive bilaterally Lumbar spine Motor strength lower extremities ,thigh and legs 5/5 Right side , 5/5 Left side Deep tendon reflexes : Normal Knee Jerk. Normal Ankle Jerk Vertebral body tenderness over Alvarado Test positive Lumbar facet Loading Test: positive Right / positive Left L4-L5, L5-S1 Range of motion of the lumbar spine Flexion 30 degrees, extension 10 degrees Straight Leg Raise test: Left/ Right positive at degrees Tyrone test: positive right / positive left. Severe tenderness over the Sacroiliac joint on the Right / Left sides Gaenslen test: positive bilaterally Seated flexion test: positive bilaterally. Sacral spine : Severe tenderness over the Sacroiliac joint: right side / left side Range of motion: Flexion of the lumbar spine <60 degrees Range of motion: Extension of the lum bar spine <20 degrees Gaenslen's Test positive Tyrone test: positive right side / left side Thigh Thrust Test Sacral Thrust Test Imaging: MRI noncontrast of the lumbar spine from 05/27/21 reviewed Assessment/ Plan : Lumbar DDD, Lumbar Dextroscoliosis Recommendation of BL RFA L3-L5. Pt exhibited optimal pain relief w prior BL RFA of the L2-L5 in Dec 2021. Risks, benefits of procedure discussed and patient verbalized understanding. Admits to anti- coagulant use or medical history of diabetes. Protocol for discontinuation/ continuation of medications elsa procedure discussed. Minimal anesthesia provided, if clinically indicated, consisting of Versed and Fentanyl. Recommendation of medication management. Neurontin 100mg #180 90 day supply. Use, side effects, adverse reactions and safe storage discussed. Pt acknowledged understanding, Opiate/ Narcotic agreement signed 05/03/23. All questions answered. I have spent greater than 30 minutes on patient care today. Dr Parikh was available by phone for the evaluation of this patient. The time was used to review the medical records including relevant urine studies and Prescription history (MAPs), review of the available imaging, evaluation and examination of the patient, coordination of care with the medical staff and if applicable referring physicians, as well as creation of the medical record - Pain Location Bilateral Lower Back Non-Pharmacological Interventions: Chiropractic Treatment, Inactivity, Position/Reposition Pharmacological Interventions: Epidural Home Medications: Ambulatory Orders Calcium Carbonate [Calcium] 600 mg PO DAILY 10/17/21 Cholecalciferol [Vitamin D3 (25 Mcg = 1000 Iu)] 50 mcg PO DAILY 10/17/21 Temazepam [Restoril] 30 mg PO HS 10/17/21 Vitamin B Complex 1 cap PO DAILY 10/17/21 hydrOXYzine HCL [Atarax] 25 mg PO HS PRN 10/17/21 polyethylene glycoL 3350 [Miralax] 17 gm PO DAILY 10/17/21 Aspirin [Adult Low Dose Aspirin EC] 81 mg PO BID #60 tab 10/20/21 Docusate [Colace] 100 mg PO DAILY #30 capsule 10/20/21 HYDROcodone/APAP 5-325MG [[place] 5-325] 1 - 2 tab PO Q6HR PRN #32 tab 10/20/21 Gabapentin [Neurontin] 100 mg PO BID 90 Days #180 cap 05/03/23 Controlled Substance Measures - Controlled Substance Measures Is patient prescribed a controlled substance at discharge?: Yes When asked, does pt state using other controlled substances?: Yes If prescribed controlled substance>3 days was MAPS reviewed?: Yes If Rx opioid, was Start Talking consent form obtained?: Yes Was information provided regarding opioid addiction?: Yes
== END ==
LOC: PNWHC3 13:51
PROVIDERS: ATTEND Anesthesiology
DX: M51.37 Other intervertebral disc degeneration, lumbosacral region (principal); M47.817 Spondylosis without myelopathy or radiculopathy, lumbosacral region; M41.86 Other forms of scoliosis, lumbar region; M19.90 Unspecified osteoarthritis, unspecified site; Z79.82 Long term (current) use of aspirin; Z85.828 Personal history of other malignant neoplasm of skin; Z87.891 Personal history of nicotine dependence
CPT/HCPCS: 99211

== ENCOUNTER → 2023-06-06 | Day surgery (SDC) | payer MEDICARE, OTHER ==
[2023-05-31 16:28] VITALS: BMI 22.8
[~2023-06-06] MED LIST changes: -ACETAMINOPHEN TAB 500 MG TAB PO PRN; -DEXAMETHASONE SOD PHOSPHATE 4 MG/ML 1 ML VIAL IV ONE; -HYDROmorphone 0.5 MG/0.5 ML SYRINGE IVP PRN; -MELOXICAM 7.5 MG TAB PO PRN; -MIDAZOLAM 2 MG/2 ML VIAL IV PRN; +MIDAZOLAM 2 MG/2 ML VIAL ONE; -ONDANSETRON 4 MG/2 ML VIAL IVP ONE; +ROPIVACAINE 5MG/ML 20ML VIAL ONE; -ROPIVACAINE/EPI/CLONIDINE/KET 50 ML SYRINGE MISCELLANE PRN; -TRANEXAMIC ACID 1,000 MG in SODIUM CHLORIDE 0.9% 100 ML IVPB PRN; +fentaNYL (PF) 50 MCG/ML 2 ML AMP ONE
[2023-06-06] MEDS: LACTATED RINGERS 1,000 ML IV SCH (10:34)
[2023-06-06 10:35] VITALS: TEMP 97.4
[2023-06-06] MEDS: IV FLUID CONTINUATION 1,000 ML IV ONE (12:26)
--- NOTE | 2023-06-06 12:52 | P.PCN ---
Description of Procedure: Preprocedure diagnosis. 1. Lumbar spondylosis with facet joint arthropathy without myelopathy. 2. Lumbar degenerative disc disease. Procedure diagnosis. 1. Lumbar spondylosis with facet joint arthropathy without myelopathy. Space 2. Lumbar degenerative disc disease. Procedure.Bilateral radiofrequency thermocoagulation L3, L4 and L5 medial branch, with fluoroscopic guidance (fluoroscopy images are available in the radiology department) (to Denervate the facet joint at bilateral L4- 5 and L5-S1 levels) Anesthesia. Monitored anesthesia care as per anesthesia department, moderate sedation with intravenous Versed 2 mg and fentanyl 100 g and local infiltration with ropivacaine 0.5%. Continuous verbal communication was maintained with patient. EBL minimal. Procedure indication. The patient with low back pain secondary to lumbar facet arthropathy who he had more than 50% relief of her pain with previous diagnostic lumbar medial branch block with local anesthetics.The patient was seen and identified in the preoperative area. Risks: Benefits, complications, including but not limited to risk of infection, bleeding, ALLERGIC reaction to the medications and no complete pain relief and alternatives were discussed with the patient, the patient admitted to proceed with the procedure and signed the consent. Procedure description/technique. Patient was taken to the OR and timeout was completed. The patient was placed in prone position on the procedure table. The lumbar area was prepped and draped in the usual sterile fashion. After injecting 5 ml of 1% Lidocaine subcutaneously,using AP and then oblique, lateral view of fluoroscopy, 18-gauge 100 mm radiofrequency cannula with a 10 mm active tip was advanced and guided by fluoroscopy at the junction of supirior articular process with RIGHT ala of the sacrum, transverse process of L4&L5. Each site then underwent positive sensory testing with 50 Hz and 0-1 V and negative motor testing at 2.5 Hz and 0-3 V with local stimulation but no radicular symptoms down the leg. Thereafter each sites underwent radiofrequency thermocoagulation at 80C for 90 seconds after injecting 1 mL of preservative- free 0.5% ropivacaine. Repeat radiofrequency ablation was done at each points after rotating the needle 180 with same setting. This same procedure was repeated twice on the LEFT side at the junction of superior articular process with ala of sacrum,transverse process of L4, L5 with the same settings after positive sensory,negative motor stimulation and infiltration of 1.0 ml 5% Ropivacaine at each site . RF needles were taken out. At the end of the procedure the skin was cleansed and Band-Aids were applied. Disposition patient tolerated the procedure well. No complication. She was placed in supine position and transferred to the recovery area in stable condition for observation and was discharged home from recovery room after meeti ng discharge criteria. Discharge instructions given to the patient by the staff. The patient were examined prior to discharge the patient will schedule a follow-up in the clinic in 2-4 weeks.
[2023-06-06 12:57] VITALS: BP 147/68; PULSE 78; RESP 16
--- NOTE | 2023-06-07 14:17 | FL ---
EXAMINATION TYPE: FL guided pain mgmt statistic DATE OF EXAM: 06/06/2023 FLUOROSCOPY Fluoroscopy time of 1 minute 59 seconds was used during bilateral lumbar radiofrequency ablation. 6 image/s document/s the procedure. 0.16734 mGycm2 DAP
== END ==
LOC: ORPAIN 09:17
PROVIDERS: ATTEND Pain Medicine Interventional Pain Medicine
DX: M51.36 Other intervertebral disc degeneration, lumbar region (principal); M47.816 Spondylosis without myelopathy or radiculopathy, lumbar region
CPT/HCPCS: 64635; 64636 ×2; 99152; 99153; J2250; J3010; J2795

== ENCOUNTER → 2023-06-22 | Outpatient (CLI) | payer MEDICARE, OTHER ==
[2023-06-22 09:57] VITALS: BP 164/74; PULSE 96; RESP 16; TEMP 97.5
--- NOTE | 2023-06-22 14:09 | P.PAINPG ---
PQRS Measure Charge Sheet Comment: HISTORY OF PRESENT ILLNESS: A 78 yr old female presents today w severe and chronic LBP x 1 yr secondary to DDD, spondylosis and facet arthropathy without myelopathy for evaluation s/p BL RFA L3-L5. Pt states she experienced % pain relief s/p procedures. Pt states pain level is provoked at 9 /10 in intensity, constant, localized in the lower lumbar spine, predominantly axial, achy in character w occasional shooting pain towards the L & R of midline. Pain is provoked by standing for periods > 15 min. Pain is alleviated by PT in 2021, alternating heat & ice, medications, chiropractic treatments as needed, repositioning and rest. Oswestry axial pain score at 31. Interventional procedures include BL RFA L3-L5 (May 2023) Medications include Tyl, Ibu REVIEW OF ORGAN SYSTEMS: CONSTITUTIONAL: No fevers or chills. No recent weight loss. NEUROLOGICAL: + numbness and tingling along the distal extremities. No seizure disorders or headaches. MUSCULOSKELETAL: + pain PSYCHIATRIC: Denies current depression or suicidal thoughts. Physical Examinations : Constitutional : Cooperative , not in acute distress . Neurologic : Cranial nerve II to XII intact. No focal neurological deficits. Psychiatric : alert & oriented x 3. Matching mood & appropriate affect. Judgment & insight intact. Musculoskeletal : Cervical Spine Motor strength in the deltoid and biceps: Normal right side. Normal Left side Motor strength biceps and the wrist extensors: Normal right side . Normal left side Motor strength in the triceps muscle: Normal right side. Normal left side Deep tendon reflexes: Normal at the biceps. Normal at Brachioradialis. Normal at triceps Vertebral body tenderness to deep palpation over Cervical facet loading test: positive bilaterally Spurling test: positive bilaterally Neck distraction test: positive bilaterally Allan sign: positive bilaterally Lumbar spine +Trendelenburg Sign BL Motor strength lower extremities ,thigh and legs 5/5 Right side , 5/5 Left side Deep tendon reflexes : Normal Knee Jerk. Normal Ankle Jerk Vertebral body tenderness over Alvarado Test positive Lumbar facet Loading Test: positive Right / positive Range of motion of the lumbar spine Flexion 30 degrees, extension 10 degrees Straight Leg Raise test: Left/ Right positive at degrees Tyrone test: positive right / positive left. Severe tenderness over the Sacroiliac joint on the Right / Left sides Gaenslen test: positive bilaterally Seated flexion test: positive bilaterally. Sacral spine : Severe tenderness over the Sacroiliac joint: right side / left side Range of motion: Flexion of the lumbar spine <60 degrees Range of motion: Extension of the lumbar spine <20 degrees Gaenslen's Test positive Tyrone test: positive right side / left side Thigh Thrust Test Sacral Thrust Test Imaging: MRI noncontrast of the lumbar spine from 05/27/21 reviewed Assessment/ Plan : Lumbar DDD, Lumbar Dextroscoliosis Recommendation of medication management. [place] 7.5/325mg #60 w 1 Has supply of Neurontin 100mg #180 90 day. Use, side effects, adverse reactions and safe storage discussed. Pt acknowledged understanding, Opiate/ Narcotic agreement signed 05/03/23 (Neurontin) and 06/22/23 ([place]). All questions answered. I have spent greater than 30 minutes on patient care today. Dr Parikh was available by phone for the evaluation of this patient. The time was used to review the medical records including relevant urine studies and Prescription history (MAPs), review of the available imaging, evaluation and examination of the patient, coordination of care with the medical staff and if applicable referring physicians, as well as creation of the medical record PQRS Narrative: Hx Alcohol Use (MH) No Home Medications: Ambulatory Orders Calcium Carbonate [Calcium] 600 mg PO DAILY 10/17/21 Cholecalciferol [Vitamin D3 (25 Mcg = 1000 Iu)] 50 mcg PO DAILY 10/17/21 Temazepam [Restoril] 30 mg PO HS 10/17/21 Vitamin B Complex 1 cap PO DAILY 10/17/21 hydrOXYzine HCL [Atarax] 25 mg PO HS PRN 10/17/21 polyethylene glycoL 3350 [Miralax] 17 gm PO DAILY 10/17/21 Gabapentin [Neurontin] 100 mg PO BID 90 Days #180 cap 05/03/23 Ibuprofen 800 mg PO DAILY PRN 05/31/23 HYDROcodone/APAP 7.5-325MG [[place] 7.5-325] 1 tab PO BID PRN 30 Days #60 tab 06/22/23 HYDROcodone/APAP 7.5-325MG [[place] 7.5-325] 1 tab PO BID PRN 30 Days #60 tab 06/22/23 Controlled Substance Measures - Controlled Substance Measures Is patient prescribed a controlled substance at discharge?: Yes When asked, does pt state using other controlled substances?: Yes If prescribed controlled substance>3 days was MAPS reviewed?: Yes If Rx opioid, was Start Talking consent form obtained?: Yes Was information provided regarding opioid addiction?: Yes
== END ==
LOC: PNWHC3 09:03
PROVIDERS: ATTEND Specialist
DX: M51.36 Other intervertebral disc degeneration, lumbar region (principal); M47.816 Spondylosis without myelopathy or radiculopathy, lumbar region; M41.86 Other forms of scoliosis, lumbar region; Z87.891 Personal history of nicotine dependence
CPT/HCPCS: 99211

== ENCOUNTER → 2023-08-17 | Outpatient (CLI) | payer MEDICARE, OTHER ==
[2023-08-17 13:09] VITALS: BP 154/69; PULSE 60; RESP 16
--- NOTE | 2023-08-17 14:53 | P.PAINPG ---
PQRS Measure Charge Sheet Comment: HISTORY OF PRESENT ILLNESS: A 78 yr old female presents today w severe and chronic LBP x 1 yr secondary to DDD, spondylosis and facet arthropathy without myelopathy for evaluation. Pt states pain level is provoked at 3 /10 in intensity, intermittent, localized in the lower lumbar spine, predominantly axial, achy in character w occasional shooting pain towards the L & R of midline. Pain is provoked by standing for periods > 15 min. Pain is alleviated by PT in 2021, alternating heat & ice, medications, chiropractic treatments as needed, repositioning and rest. Oswestry axial pain score at 30. Interventional procedures include BL RFA L3-L5 (May 2023) Medications include Tyl, Ibu REVIEW OF ORGAN SYSTEMS: CONSTITUTIONAL: No fevers or chills. No recent weight loss. NEUROLOGICAL: + numbness and tingling along the distal extremities. No seizure disorders or headaches. MUSCULOSKELETAL: + pain PSYCHIATRIC: Denies current depression or suicidal thoughts. Physical Examinations : Constitutional : Cooperative , not in acute distress . Neurologic : Cranial nerve II to XII intact. No focal neurological deficits. Psychiatric : alert & oriented x 3. Matching mood & appropriate affect. Judgment & insight intact. Musculoskeletal : Cervical Spine Motor strength in the deltoid and biceps: Normal right side. Normal Left side Motor strength biceps and the wrist extensors: Normal right side . Normal left side Motor strength in the triceps muscle: Normal right side. Normal left side Deep tendon reflexes: Normal at the biceps. Normal at Brachioradialis. Normal at triceps Vertebral body tenderness to deep palpation over Cervical facet loading test: positive bilaterally Spurling test: positive bilaterally Neck distraction test: positive bilaterally Allan sign: positive bilaterally Lumbar spine +Trendelenburg Sign BL Motor strength lower extremities ,thigh and legs 5/5 Right side , 5/5 Left side Deep tendon reflexes : Normal Knee Jerk. Normal Ankle Jerk Vertebral body tenderness over Alvarado Test positive Lumbar facet Loading Test: positive Right / positive Range of motion of the lumbar spine Flexion 30 degrees, extension 10 degrees Straight Leg Raise test: Left/ Right positive at degrees Tyrone test: positive right / positive left. Severe tenderness over the Sacroiliac joint on the Right / Left sides Gaenslen test: positive bilaterally Seated flexion test: positive bilaterally. Sacral spine : Severe tenderness over the Sacroiliac joint: right side / left side Range of motion: Flexion of the lumbar spine <60 degrees Range of motion: Extension of the lumbar spine <20 degrees Gaenslen's Test positive Tyrone test: positive right side / left side Thigh Thrust Test Sacral Thrust Test Imaging: MRI noncontrast of the lumbar spine from 05/27/21 reviewed Assessment/ Plan : Lumbar DDD, Lumbar Dextroscoliosis Recommendation of medication management. [place] 7.5/325mg #60 w 1 RF Has 90d supply of Neurontin 100mg #180. Use, side effects, adverse reactions and safe storage discussed. Pt acknowledged understanding, Opiate/ Narcotic agreement signed 05/03/23 (Neurontin) and 06/22/23 ([place]). UDS collected at next visit. All questions answered. I have spent greater than 30 minutes on patient care today. Dr Parikh was available by phone for the evaluation of this patient. The time was used to review the medical records including relevant urine studies and Prescription history (MAPs), review of the available imaging, evaluation and examination of the patient, coordination of care with the medical staff and if applicable referring physicians, as well as creation of the medical record PQRS Narrative: Narcotic Agreement Date Signed 06/22/23 Hx Alcohol Use (MH) No Home Medications: Ambulatory Orders Calcium Carbonate [Calcium] 600 mg PO DAILY 10/17/21 Cholecalciferol [Vitamin D3 (25 Mcg = 1000 Iu)] 50 mcg PO DAILY 10/17/21 Temazepam [Restoril] 30 mg PO HS 10/17/21 Vitamin B Complex 1 cap PO DAILY 10/17/21 hydrOXYzine HCL [Atarax] 25 mg PO HS PRN 10/17/21 polyethylene glycoL 3350 [Miralax] 17 gm PO DAILY 10/17/21 Ibuprofen 800 mg PO DAILY PRN 05/31/23 Gabapentin [Neurontin] 100 mg PO BID 90 Days #180 cap 08/09/23 HYDROcodone/APAP 7.5-325MG [[place] 7.5-325] 1 tab PO BID PRN 30 Days #60 tab 08/17/23 HYDROcodone/APAP 7.5-325MG [[place] 7.5-325] 1 tab PO BID PRN 30 Days #60 tab 08/17/23 Controlled Substance Measures - Controlled Substance Measures Is patient prescribed a controlled substance at discharge?: Yes When asked, does pt state using other controlled substances?: Yes If prescribed controlled substance>3 days was MAPS reviewed?: Yes
== END ==
LOC: PNWHC3 12:24
PROVIDERS: ATTEND Specialist
DX: M51.36 Other intervertebral disc degeneration, lumbar region (principal); M41.86 Other forms of scoliosis, lumbar region; Z87.891 Personal history of nicotine dependence
CPT/HCPCS: 99211

== ENCOUNTER → 2023-10-23 | Outpatient (CLI) | payer MEDICARE, OTHER ==
[2023-10-23 14:15] VITALS: BP 122/62; PULSE 66; RESP 16
--- NOTE | 2023-10-23 14:49 | P.PAINPG ---
PQRS Measure Charge Sheet Comment: HISTORY OF PRESENT ILLNESS: A 78 yr old female presents today w severe and chronic LBP x 1 yr secondary to DDD, spondylosis and facet arthropathy without myelopathy for evaluation. Pt states pain level is provoked at 4 /10 in intensity, intermittent, localized in the lower lumbar spine, predominantly axial, stabbing in character w occasional shooting pain towards the L & R of midline. Pain is provoked by standing for periods > 15 min. Pain is alleviated by PT in 2021, alternating heat & ice, medications, chiropractic treatments as needed, repositioning and rest. Oswestry axial pain score at 30. Interventional procedures include BL RFA L3-L5 (06/06/23) Medications include Tyl, Ibu REVIEW OF ORGAN SYSTEMS: CONSTITUTIONAL: No fevers or chills. No recent weight loss. NEUROLOGICAL: + numbness and tingling along the distal extremities. No seizure disorders or headaches. MUSCULOSKELETAL: + pain PSYCHIATRIC: Denies current depression or suicidal thoughts. Physical Examinations : Constitutional : Cooperative , not in acute distress . Neurologic : Cranial nerve II to XII intact. No focal neurological deficits. Psychiatric : alert & oriented x 3. Matching mood & appropriate affect. Judgment & insight intact. Musculoskeletal : Cervical Spine Motor strength in the deltoid and biceps: Normal right side. Normal Left side Motor strength biceps and the wrist extensors: Normal right side . Normal left side Motor strength in the triceps muscle: Normal right side. Normal left side Deep tendon reflexes: Normal at the biceps. Normal at Brachioradialis. Normal at triceps Vertebral body tenderness to deep palpation over Cervical facet loading test: positive bilaterally Spurling test: positive bilaterally Neck distraction test: positive bilaterally Allan sign: positive bilaterally Lumbar spine +Trendelenburg Sign BL Motor strength lower extremities ,thigh and legs 5/5 Right side , 5/5 Left side Deep tendon reflexes : Normal Knee Jerk. Normal Ankle Jerk Vertebral body tenderness over Alvarado Test positive L5 Lumbar facet Loading Test: positive Rig ht / positive Range of motion of the lumbar spine Flexion 30 degrees, extension 10 degrees Straight Leg Raise test: Left/ Right positive at degrees Tyrone test: positive right / positive left. Severe tenderness over the Sacroiliac joint on the Right / Left sides Gaenslen test: positive bilaterally Seated flexion test: positive bilat erally. Sacral spine : Severe tenderness over the Sacroiliac joint: right side / left side Range of motion: Flexion of the lumbar spine <60 degrees Range of motion: Extension of the lumbar spine <20 degrees Gaenslen's Test positive Tyrone test: positive right side / left side Thigh Thrust Test Sacral Thrust Test Imaging: MRI non contrast of the lumbar spine from 05/27/21 reviewed Assessment/ Plan : Lumbar DDD, Lumbar Dextroscoliosis Recommendation of medication management. [place] 7.5/325mg #60 w 1 RF Has 90d supply of Neurontin 100mg #180. Use, side effects, adverse reactions and safe storage discussed. Pt acknowledged understanding, Opiate/ Narcotic agreement signed 05/03/23 (Neurontin) and 06/22/23 ([place]). Per MAPS, last [place] fill was 08/17/23 so may check UDS at next visit. All questions answered. I have spent greater than 30 minutes on patient care today. Dr Parikh was available by phone for the evaluation of this patient. The time was used to review the medical records including relevant urine studies and Prescription history ([facility]), review of the available imaging, evaluation and examination of the patient, coordination of care with the medical staff and if applicable referring physicians, as well as creation of the medical record - Pain Location Lower Back Pharmacological Interventions: Medication, PRN Medication PQRS Narrative: Narcotic Agreement Date Signed 06/22/23 Hx Alcohol Use (MH) No Home Medications: Ambulatory Orders Calcium Carbonate [Calcium] 600 mg PO DAILY 10/17/21 Cholecalciferol [Vitamin D3 (25 Mcg = 1000 Iu)] 50 mcg PO DAILY 10/17/21 Temazepam [Restoril] 30 mg PO HS 10/17/21 Vitamin B Complex 1 cap PO DAILY 10/17/21 hydrOXYzine HCL [Atarax] 25 mg PO HS PRN 10/17/21 polyethylene glycoL 3350 [Miralax] 17 gm PO DAILY 10/17/21 Ibuprofen 800 mg PO DAILY PRN 05/31/23 Gabapentin [Neurontin] 100 mg PO BID 90 Days #180 cap 10/23/23 HYDROcodone/APAP 7.5-325MG [[place] 7.5-325] 1 tab PO BID PRN 30 Days #60 tab 10/23/23 HYDROcodone/APAP 7.5-325MG [[place] 7.5-325] 1 tab PO BID PRN 30 Days #60 tab 10/23/23 HYDROcodone/APAP 7.5-325MG [[place] 7.5-325] 1 tab PO BID PRN 30 Days #60 tab 10/23/23 Controlled Substance Measures - Controlled Substance Measures Is patient prescribed a controlled substance at discharge?: Yes When asked, does pt state using other controlled substances?: No If prescribed controlled substance>3 days was MAPS reviewed?: Yes
== END ==
LOC: PNWHC3 13:57
PROVIDERS: ATTEND Specialist
DX: M51.36 Other intervertebral disc degeneration, lumbar region (principal); M47.816 Spondylosis without myelopathy or radiculopathy, lumbar region; M41.86 Other forms of scoliosis, lumbar region; Z87.891 Personal history of nicotine dependence
CPT/HCPCS: 99211

== ENCOUNTER → 2024-01-15 | Outpatient (CLI) | payer MEDICARE, OTHER ==
[2024-01-15 14:14] VITALS: BP 147/88; PULSE 88; RESP 16; TEMP 97.5
--- NOTE | 2024-01-15 15:03 | P.PAINPG ---
PQRS Measure Charge Sheet Comment: HISTORY OF PRESENT ILLNESS: A 78 yr old female presents today w severe and chronic LBP x 1 yr secondary to radiculopathy, spondylosis and facet arthropathy without myelopathy for medication refills. Pt states pain level is provoked at 6 /10 in intensity, intermittent, localized in the lower lumbar spine, predominantly axial, stabbing in character w occasional shooting pain towards the L & R of midline. Pain is provoked by standing for periods > 15 min. Pain is alleviated by PT in 2021, alternating heat & ice, medications, chiropractic treatments as needed, repositioning and rest. Interventional procedures include BL RFA L3-L5 (06/06/23) Medications include Tyl, Ibu REVIEW OF ORGAN SYSTEMS: CONSTITUTIONAL: No fevers or chills. No recent weight loss. NEUROLOGICAL: + numbness and tingling along the distal extremities. No seizure disorders or headaches. MUSCULOSKELETAL: + pain PSYCHIATRIC: Denies current depression or suicidal thoughts. Physical Examinations : Constitutional : Cooperative , not in acute distress . Neurologic : Cranial nerve II to XII intact. No focal neurological deficits. Psychiatric : alert & oriented x 3. Matching mood & appropriate affect. Judgment & insight intact. Musculoskeletal : Cervical Spine Motor strength in the deltoid and biceps: Normal right side. Normal Left side Motor strength biceps and the wrist extensors: Normal right side . Normal left side Motor strength in the triceps muscle: Normal right side. Normal left side Deep tendon reflexes: Normal at the biceps. Normal at Brachioradialis. Normal at triceps Vertebral body tenderness to deep palpation over Cervical facet loading test: positive bilaterally Spurling test: positive bilaterally Neck distraction test: positive bilaterally Allan sign: positive bilaterally Lumbar spine +Trendelenburg Sign BL Motor strength lower extremities ,thigh and legs 5/5 Right side , 5/5 Left side Deep tendon reflexes : Normal Knee Jerk. Normal Ankle Jerk Vertebral body tenderness over Alvarado Test positive L5 Lumbar facet Loading Test: positive Right / positive Range of motion of the lumbar spine Flexion 30 degrees, extension 10 degrees Straight Leg Raise test: Left/ Right positive at degrees Tyorne test: positive right / positive left. Severe tenderness over the Sacroiliac joint on the Right / Left sides Gaenslen test: positive bilaterally Seated flexion test: positive bilaterally. Sacral spine : Severe tenderness over the Sacroiliac joint: right side / left side Range of motion: Flexion of the lumbar spine <60 degrees Range of motion: Extension of the lumbar spine <20 degrees Gaenslen's Test positive Tyrone test: positive right side / left side Thigh Thrust Test Sacral Thrust Test Imaging: MRI non contrast of the lumbar spine from 05/27/21 reviewed Assessment/ Plan : Lumbar radiculopathy, Lumbar Dextroscoliosis Recommendation of medication management. [place] 7.5/325mg #60 w 2 RF . Use, side effects, adverse reactions and safe storage discussed. Pt acknowledged understanding, Opiate/ Narcotic agreement signed 06/22/23 . UDS collected 01/15/24. All questions answered. I have spent greater than 30 minutes on patient care today. Dr Parikh was available by phone for the evaluation of this patient. The time was used to review the medical records including relevant urine studies and Prescription history (MAPs), review of the available imaging, evaluation and examination of the patient, coordination of care with the medical staff and if applicable ref erring physicians, as well as creation of the medical record PQRS Narrative: Narcotic Agreement Date Signed 06/22/23 Hx Alcohol Use (MH) No Home Medications: Ambulatory Orders Calcium Carbonate [Calcium] 600 mg PO DAILY 10/17/21 Cholecalciferol [Vitamin D3 (25 Mcg = 1000 Iu)] 50 mcg PO DAILY 10/17/21 Temazepam [Restoril] 30 mg PO HS 10/17/21 Vitamin B Complex 1 cap PO DAILY 10/17/21 hydrOXYzine HCL [Atarax] 25 mg PO HS PRN 10/17/21 polyethylene glycoL 3350 [Miralax] 17 gm PO DAILY 10/17/21 Ibuprofen 800 mg PO DAILY PRN 05/31/23 Gabapentin [Neurontin] 100 mg PO BID 90 Days #180 cap 10/23/23 HYDROcodone/APAP 7.5-325MG [[place] 7.5-325] 1 tab PO BID PRN 30 Days #60 tab 01/15/24 HYDROcodone/APAP 7.5-325MG [[place] 7.5-325] 1 tab PO BID PRN 30 Days #60 tab 01/15/24 HYDROcodone/APAP 7.5-325MG [[place] 7.5-325] 1 tab PO BID PRN 30 Days #60 tab 01/15/24 Controlled Substance Measures - Controlled Substance Measures Is patient prescribed a controlled substance at discharge?: Yes When asked, does pt state using other controlled substances?: No If prescribed controlled substance>3 days was MAPS reviewed?: Yes
== END ==
LOC: PNWHC3 13:40
PROVIDERS: ATTEND Specialist
DX: M47.816 Spondylosis without myelopathy or radiculopathy, lumbar region
CPT/HCPCS: 99211

== ENCOUNTER → 2024-01-15 | Outpatient (CLI) | payer MEDICARE, OTHER ==
[2024-01-16 08:54] LABS: Serum Amphetamine Negative; Serum Barbiturates Negative; Serum Benzodiazepine Positive; Serum Cocaine Negative; Serum Methadone Negative; Serum Opiates Negative; Serum Phencyclidine Negative; Serum Propoxyphene Negative; Serum THC (Cannabis) Negative
== END | disposition home or self-care (01) ==
LOC: LABWHC1 14:17
PROVIDERS: ATTEND Physician Assistant Medical
DX: Z02.83 Encounter for blood-alcohol and blood-drug test (principal)
CPT/HCPCS: 36415; 80307

== ENCOUNTER 2024-03-12 17:59 | Inpatient (IN) | payer MEDICARE, OTHER ==
--- NOTE | 2024-03-12 19:24 | ED ---
General Adult HPI - General Chief complaint: Fall Stated complaint: Fall/L hip pain/injury Time Seen by Provider: 03/12/24 19:24 Source: patient, RN notes reviewed Mode of arrival: wheelchair Limitations: no limitations - History of Present Illness Initial comments: 78-year-old female presents to the emergency department for evaluation of left hip pain following a fall. She states that she was visiting a friend when she tripped causing her to fall. Patient states that she was evaluated at urgent care prior to this and had x-rays performed and they are "inconclusive "she states that she cannot bear all of her weight onto her left leg because of the pain. Denies head injury. Denies blood thinners. - Related Data Home Medications Medication Instructions Recorded Confirmed Calcium Carbonate [Calcium] 600 mg PO DAILY 10/17/21 01/15/24 Cholecalciferol [Vitamin D3 (25 50 mcg PO DAILY 10/17/21 01/15/24 Mcg = 1000 Iu)] Temazepam [Restoril] 30 mg PO HS 10/17/21 01/15/24 Vitamin B Complex 1 cap PO DAILY 10/17/21 01/15/24 hydrOXYzine HCL [Atarax] 25 mg PO HS PRN 10/17/21 01/15/24 polyethylene glycoL 3350 [Miralax] 17 gm PO DAILY 10/17/21 01/15/24 Ibuprofen 800 mg PO DAILY PRN 05/31/23 01/15/24 Previous Rx's Medication Instructions Recorded Gabapentin [Neurontin] 100 mg PO BID 90 Days #180 cap 10/23/23 HYDROcodone/APAP 7.5-325MG [[place] 1 tab PO BID PRN 30 Days #60 tab 01/15/24 7.5-325] HYDROcodone/APAP 7.5-325MG [[place] 1 tab PO BID PRN 30 Days #60 tab 01/15/24 7.5-325] HYDROcodone/APAP 7.5-325MG [[place] 1 tab PO BID PRN 30 Days #60 tab 01/15/24 7.5-325] Allergies Allergy/AdvReac Type Severity Reaction Status Date / Time No Known Allergies Allergy Verified 03/12/24 18:26 Review of Systems ROS Statement: Those systems with pertinent positive or pertinent negative responses have been documented in the HPI. ROS Other: All systems not noted in ROS Statement are negative. 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 Past Anesthesia/Blood Transfusion Reactions: No Reported Reaction Past Psychological History: No Psychological Hx Reported Smoking Status: Former smoker Past Alcohol Use History: None Reported Past Drug Use History: None Reported - Past Family History Mother Family Medical History: Cancer Brother(s) Family Medical History: Cancer Sister(s) Family Medical History: Cancer General Exam - General Exam Comments Initial Comments: Visual Physical Exam Vital signs reviewed General: Well-appearing, nontoxic, no acute distress. Head: Normocephalic, atraumatic Eyes: PERRLA, EOMI ENT: Airway patent Chest: Nonlabored breathing Skin: No visual rash, normal skin tone Neuro: Alert and oriented 3 Musculoskeletal: No gross abnormalities Limitations: no limitations General appearance: alert, in no apparent distress Head exam: Present: atraumatic, normocephalic, normal inspection Eye exam: Present: normal appearance, PERRL, EOMI. Absent: scleral icterus, conjunctival injection, periorbital swelling ENT exam: Present: normal exam, mucous membranes moist Neck exam: Present: normal inspection. Absent: tenderness, meningismus, lymphadenopathy Respiratory exam: Present: normal lung sounds bilaterally. Absent: respiratory distress, wheezes, rales, rhonchi, stridor Cardiovascular Exam: Present: regular rate, normal rhythm, normal heart sounds. Absent: systolic murmur, diastolic murmur, rubs, gallop, clicks Extremities exam: Present: tenderness, normal capillary refill, other (Still pul ses 2+). Absent: full ROM (Decreased flexion of the left hip), pedal edema, joint swelling, calf tenderness Neurological exam: Present: alert, oriented X3 Psychiatric exam: Present: normal affect, normal mood Skin exam: Present: warm, dry, intact, normal color. Absent: rash Course Vital Signs 03/12/24 03/13/24 18:22 00:12 Temperature 98.5 F Pulse Rate 64 65 Respiratory 18 16 Rate Blood Pressure 177/84 146/56 O2 Sat by Pulse 99 96 Oximetry Medical Decision Making - Medical Decision Making Quick note preformed and electronically signed by DARRELL Harrington-C Was pt. sent in by a medical professional or institution (DARRELL Guardado, [employer], urgent care, hospital, or retirement...) When possible be specific @ -No Did you speak to anyone other than the patient for history (EMS, parent, family, police, friend...)? What history was obtained from this source @ -Patient's daughter provided some history of this patient Did you review nursing and triage notes (agree or disagree)? Why? @ -I reviewed and agree with nursing and triage notes Were old charts reviewed (outside hosp., previous admission, EMS record, old EKG, old radiological studies, urgent care reports/EKG's, retirement records)? Report findings @ -No old charts were reviewed Differential Diagnosis (chest pain, altered mental status, abdominal pain women, abdominal pain men, vaginal bleeding, weakness, fever, dyspnea, syncope, he adache, dizziness, GI bleed, back pain, seizure, CVA, palpatations, mental health, musculoskeletal)? @ -Differential Musculoskeletal Muscular strain, contusion, ligament sprain, fracture, arthritis, septic arthritis, bursitis, cellulitis, muscle spasm, nerve compression, DVT, arterial occlusion, herpes zoster, electrolyte abnormality, tumor.... This is not meant to be in all inclusive list EKG interpreted by me (3pts min.). @ -EKG at 2134 shows sinus rhythm rate 72, [place] 194/24, QTQTc [id number] X-rays interpreted by me (1pt min.). @ -X-ray of the left hip shows Questionable cortical step-off/nondisplaced fracture along the medial aspect of the left femoral head CT interpreted by me (1pt min.). @ -CT of the left hip shows comminuted Minimally displaced fracture of the left femoral head/neck junction U/S interpreted by me (1pt. min.). @ -None done What testing was considered but not performed or refused? (CT, X-rays, U/S, labs)? Why? @ -None What meds were considered but not given or refused? Why? @ -None Did you discuss the management of the patient with other professionals (professionals i.e. Dr., PA, [employer], lab, RT, psych nurse, case management social worker, headwaitress, teacher, catapult and arresting gear officer, child welfare caseworker)? Give summary @ -Management discussed with Dr. Jackson who is accepting of the admission Was smoking cessation discussed for >3mins.? @ -No Was critical care preformed (if so, how long)? @ -No Were there social determinants of health that impacted care today? How? (Homelessness, low income, unemployed, alcoholism, drug addiction, transportation, low edu. Level, literacy, decrease access to med. care, retirement, rehab)? @ -No Was there de-escalation of care discussed even if they declined (Discuss DNR or withdrawal of care, Hospice)? DNR status @ -No What co-morbidities impacted this encounter? (DM, HTN, Smoking, COPD, CAD, Cancer, CVA, ARF, Chemo, Hep., AIDS, mental health diagnosis, sleep apnea, morbid obesity)? @ -None Was patient admitted / discharged? Hospital course, mention meds given and route, prescriptions, significant lab abnormalities, going to OR and other pertinent info. @ -Admitted. Patient presented to the emergency department for evaluation of left hip pain from a fall. X-ray of the left hip obtained shows questionable cortical step-off/nondisplaced fracture over the medial aspect of the left femoral head. Patient has significant pain and therefore CT was obtained revealing a comminuted minimally displaced fracture of the left femoral head/neck junction. Case was discussed with orthopedics, Dr. Jackson who is accepting of the admission. Case discussed with Dr. Mena Undiagnosed new problem with uncertain prognosis? @ -No Drug Therapy requiring intensive monitoring for toxicity (Heparin, Nitro, Insulin, Cardizem)? @ -No Were any procedures done? @ -No Diagnosis/symptom? @ -Hip fracture Acute, or Chronic, or Acute on Chronic? @ -Acute Uncomplicated (without systemic symptoms) or Complicated (systemic symptoms)? @ -Uncomplicated Side effects of treatment? @ -No Exacerbation, Progression, or Severe Exacerbation? @ -No Poses a threat to life or bodily function? How? (Chest pain, [place], HI, pneumonia, PE, COPD, DKA, ARF, appy, cholecystitis, CVA, Diverticulitis, Homicidal, Suicidal, threat to staff... and all critical care pts) @ -No - Lab Data Result diagrams: 03/12/24 21:24 03/12/24 21:24 Lab Results 03/12/24 03/12/24 03/12/24 Range/Units 21:24 21:24 21:24 WBC 8.7 (3.8-10.6) k/uL RBC 4.39 (3.80-5.40) m/uL Hgb 13.1 (11.4-16.0) gm/dL Hct 39.8 (34.0-46.0) % MCV 90.7 (80.0-100.0) fL MCH 29.7 (25.0-35.0) pg MCHC 32.8 (31.0-37.0) g/dL RDW 13.1 (11.5-15.5) % Plt Count 235 (150-450) k/uL MPV 7.5 Neutrophils % 83 % Lymphocytes % 12 % Monocytes % 4 % Eosinophils % 1 % Basophils % 0 % Neutrophils # 7.2 (1.3-7.7) k/uL Lymphocytes # 1.0 (1.0-4.8) k/uL Monocytes # 0.3 (0-1.0) k/uL Eosinophils # 0.1 (0-0.7) k/uL Basophils # 0.0 (0-0.2) k/uL PT 10.2 (10.0-12.5) sec INR 0.9 (<1.2) APTT 22.3 (22.0-30.0) sec Sodium 137 (137-145) mmol/L Potassium 4.3 (3.5-5.1) mmol/L Chloride 104 (98-107) mmol/L Carbon Dioxide 25 (22-30) mmol/L Anion Gap 8 mmol/L BUN 18 H (7-17) mg/dL Creatinine 0.79 (0.52-1.04) mg/dL Est GFR (CKD-EPI)AfAm 83 (>60 ml/min/1.73 sqM) Est GFR (CKD-EPI)NonAf 72 (>60 ml/min/1.73 sqM) Glucose 123 H (74-99) mg/dL Calcium 9.7 (8.4-10.2) mg/dL Total Bilirubin 0.7 (0.2-1.3) mg/dL AST 25 (14-36) U/L ALT 19 (4-34) U/L Alkaline Phosphatase 116 (38-126) U/L Total Protein 7.2 (6.3-8.2) g/dL Albumin 4.6 (3.5-5.0) g/dL Disposition Clinical Impression: Fall, Hip fracture Disposition: ADMITTED IP TO THIS HOSP Condition: Stable Is patient prescribed a controlled substance at d/c from ED?: No
--- NOTE | 2024-03-12 19:42 | XR ---
EXAMINATION TYPE: XR Hip Complete LT DATE OF EXAM: 03/12/2024 7:36 PM COMPARISON: Previous radiograph 12/05/2023. CLINICAL INDICATION: Female, 78 years old with history of fall; [facility] TECHNIQUE: XR Hip Complete LT; Frontal and lateral views FINDINGS: Subtle cortical step-off along the medial aspect of the left femoral head which could refle ct a nondisplaced fracture. Moderate left hip degenerative arthritic changes. Pelvic bones appear gabby ssly intact. No unexpected radiopaque foreign body. IMPRESSION: Questionable cortical step-off/nondisplaced fracture along the medial aspect of the left femoral head seen on single view only. If patient is unable to bear weight or if there is high clinical suspicion for acute hip fracture, further evaluation with dedicated CT could be obtained as indicated. [facility], , 03/12/2024 7:40 PM
[2024-03-12] MEDS: MORPHINE SULFATE 4 MG/ML SYRINGE IVP STA (21:29)
[2024-03-12 21:37] LABS: Basophils % (A) 0 %; Eosinophils # (A) 0.1 k/uL (0-0.7); Eosinophils % (A) 1 %; HCT 39.8 % (34.0-46.0); HGB 13.1 gm/dL (11.4-16.0); Lymphocytes % (A) 12 %; MCH 29.7 pg (25.0-35.0); MCHC 32.8 g/dL (31.0-37.0); MCV 90.7 fL (80.0-100.0); Mean Platelet Volume 7.5; Monocytes # (A) 0.3 k/uL (0-1.0); Monocytes % (A) 4 %; Neutrophils # (A) 7.2 k/uL (1.3-7.7); Neutrophils % (A) 83 %; Platelet Count 235 k/uL (150-450); RBC 4.39 m/uL (3.80-5.40); RDW 13.1 % (11.5-15.5); WBC 8.7 k/uL (3.8-10.6)
[2024-03-12 21:47] LABS: INR 0.9 (<1.2); Partial Thromboplastin Time 22.3 sec (22.0-30.0); Prothrombin Time 10.2 sec (10.0-12.5)
[2024-03-12 21:48] LABS: ALT 19 U/L (4-34); AST 25 U/L (14-36); African American GFR (CKD) 83 (>60 ml/min/1.73 sqM); Albumin 4.6 g/dL (3.5-5.0); Alkaline Phosphatase 116 U/L (38-126); Anion Gap 8 mmol/L; Blood Urea Nitrogen 18 mg/dL (7-17); Calcium 9.7 mg/dL (8.4-10.2); Carbon Dioxide 25 mmol/L (22-30); Chloride 104 mmol/L (98-107); Glucose 123 mg/dL (74-99); Non-African American GFR(CKD) 72 (>60 ml/min/1.73 sqM); Potassium 4.3 mmol/L (3.5-5.1); Sodium 137 mmol/L (137-145); Total Bilirubin 0.7 mg/dL (0.2-1.3); Total Protein 7.2 g/dL (6.3-8.2)
--- NOTE | 2024-03-12 21:57 | XR ---
EXAMINATION TYPE: XR chest 1V portable DATE OF EXAM: 03/12/2024 9:52 PM COMPARISON: Previous chest radiograph dated 10/17/2021. CLINICAL INDICATION: Female, 78 years old with history of FALL, HIP PAIN; [facility] TECHNIQUE: XR chest 1V portable Frontal view of the chest. FINDINGS: Lungs/Pleura: There is no evidence of pleural effusion, focal consolidation, or pneumothorax. Pulmonary vascularity: Unremarkable. Heart/mediastinum: Cardiomediastinal silhouette is unremarkable. Musculoskeletal: No acute osseous pathology. Other findings: None IMPRESSION: No acute cardiopulmonary disease/process. [facility], , 03/12/2024 9:54 PM
--- NOTE | 2024-03-12 22:08 | CT ---
EXAMINATION TYPE: CT hip LT wo con DATE OF EXAM: 03/12/2024 9:59 PM COMPARISON: Same-day hip radiograph. CLINICAL INDICATION: Female, 78 years old with history of fall; [facility], Pt presents to ED for c/o pain t o left hip following fall ealier today. Pt denies hitting head, denies thinner use, denies LOC. TECHNIQUE: Axial images were obtained of the CT hip LT wo con, Additional coronal and sagittal reform atted images and soft tissue and bone window were obtained for review. 3-D reconstruction was created on a separate workstation. CT DLP: 674.3 mGycm, Automated exposure control for dose reduction was used. FINDINGS: There is a minimally displaced comminuted fracture at the left femoral head/neck junction. Osseous st ructures appear demineralized. Right hip arthroplasty noted on marine engine machinist view. Moderate degenerative arth ritis of the left hip. No significant soft tissue hematoma or additional acute fracture. Colonic dive rticula are visualized. IMPRESSION: Comminuted minimally displaced acute fracture at the left femoral head/neck junction. [facility], , 03/12/2024 10:06 PM
[2024-03-12] MEDS ORDERED: NALOXONE 0.4 MG/ML 1 ML VIAL IV PRN (22:50)
[2024-03-12] MEDS ORDERED: ACETAMINOPHEN TAB 325 MG TAB PO PRN (22:50)
[2024-03-12] MEDS ORDERED: IBUPROFEN 400 MG TAB PO PRN (22:50)
[2024-03-12] MEDS: SODIUM CHLORIDE 0.9% 1,000 ML IV SCH (23:15)
[2024-03-13] MEDS: MORPHINE SULFATE 4 MG/ML SYRINGE IV PRN (00:18)
[2024-03-13] MEDS ORDERED: TRANEXAMIC 1,000 MG/100ML-NACL 1,000 MG in SALINE 1 100ML.BAG IVPB PRN (06:18)
[2024-03-13] MEDS ORDERED: SENNOSIDES 8.6 MG TAB PO PRN (06:21)
[2024-03-13 06:51] LABS: Basophils % (A) 0 %; Eosinophils # (A) 0.1 k/uL (0-0.7); Eosinophils % (A) 2 %; HCT 36.8 % (34.0-46.0); HGB 12.2 gm/dL (11.4-16.0); Lymphocytes # (A) 0.8 k/uL (1.0-4.8); Lymphocytes % (A) 13 %; MCH 30.2 pg (25.0-35.0); MCHC 33.1 g/dL (31.0-37.0); MCV 91.2 fL (80.0-100.0); Mean Platelet Volume 7.4; Monocytes # (A) 0.2 k/uL (0-1.0); Monocytes % (A) 3 %; Neutrophils # (A) 5.2 k/uL (1.3-7.7); Neutrophils % (A) 82 %; Platelet Count 212 k/uL (150-450); RBC 4.03 m/uL (3.80-5.40); RDW 13.1 % (11.5-15.5); WBC 6.4 k/uL (3.8-10.6)
[2024-03-13 07:12] LABS: INR 0.9 (<1.2); Prothrombin Time 10.2 sec (10.0-12.5)
[2024-03-13 07:44] LABS: African American GFR (CKD) 83 (>60 ml/min/1.73 sqM); Anion Gap 3 mmol/L; Blood Urea Nitrogen 14 mg/dL (7-17); Calcium 8.9 mg/dL (8.4-10.2); Carbon Dioxide 25 mmol/L (22-30); Chloride 107 mmol/L (98-107); Glucose 111 mg/dL (74-99); Non-African American GFR(CKD) 72 (>60 ml/min/1.73 sqM); Sodium 135 mmol/L (137-145)
--- NOTE | 2024-03-13 08:16 | P.HPOR ---
History of Present Illness H&P Date: 03/13/24 Chief Complaint: left hip pain 78 yo female presented after FFS at home with left hip pain and inability to ambulate. She has a hx of right hip fracture for which she had a VINAY done by Dr. Russo two years ago. She has done well from this. She states today that she just fell at home and has hip pain. She denies any BHT or LOC. She states no f/c/sob/cp at this time. She states pain in hip with motion better at rest. 9/10 with motion. Denies any other areas of injury. Spoke with her daughter over the phone as well that is a RN and her and her daughter are req uesting Dr. Russo for treatment as they have had surgery by him before and had excellent results. Review of Systems 16 points review of systems completed and as stated in HPI, all other systems reviewed are negative. 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 Past Anesthesia/Blood Transfusion Reactions: No Reported Reaction Past Psychological History: No Psychological Hx Reported Smoking Status: Former smoker Past Alcohol Use History: None Reported Past Drug Use History: None Reported - Past Family History Mother Family Medical History: Cancer Brother(s) Family Medical History: Cancer Sister(s) Family Medical History: Cancer Medications and Allergies Allergies Allergy/AdvReac Type Severity Reaction Status Date / Time No Known Allergies Allergy Verified 03/12/24 18:26 Physical Examination Osteopathic Statement: *. No significant issues noted on an osteopathic structural exam other than those noted in the History and Physical/Consult. Physical Exam: -Patient is alert and oriented 3 appears well-nourished well-hydrated is in no acute distress. They do not appear septic. -There is TTP about the left hip -Upper extremities show [5] out of 5 strength in all major muscle groups. [##EXCEPT] -Lower extremities with [5] out of 5 strength in all major muscle groups left hip flexion and knee flexion and extension secondary fracture -There is [FROM] that is [painless] of the b/l UE and LE in all major joints. Except for left hip due to fracture positive log roll on the left causes pain -They are intact to light touch sensation in C5 to T1 and L2 to S1 nerve distribution. -DTR [2]/4 all upper and lower extremities -Patient has palpable distal pulses all 4 ext -Compartments are soft and compressible. -Patient shows a negative Aric's [-Neg Hoffmans b/l] [-Neg Clonus b/l] [-Neg babinski b/l] Cranial nerves II through XII are grossly intact. Results AP pelvis and AP lateral of the left hip as well as CT pelvis and hip are reviewed and demonstrate a femoral neck fracture subcapital it is complete and there is increased angulation of the Sainz's greater than 70. This is a complete fracture and there is displacement. No other fractures are evident at this time total hip arthroplasty in the right appears to be in good position without evidence of migration loosening or failure. There are no other frac tures or osseous abdomen is noted at this time. - Labs Labs: Abnormal Lab Results - Last 24 Hours (Table) 03/12/24 03/13/24 03/13/24 Range/Units 21:24 06:25 06:25 Lymphocytes # 0.8 L (1.0-4.8) k/uL Sodium 135 L (137-145) mmol/L BUN 18 H (7-17) mg/dL Glucose 123 H 111 H (74-99) mg/dL H & H 03/12/24 03/13/24 Range/Units 21:24 06:25 Hgb 13.1 12.2 (11.4-16.0) gm/dL Hct 39.8 36.8 (34.0-46.0) % Coagulation 03/12/24 03/13/24 Range/Units 21:24 06:25 INR 0.9 0.9 (<1.2) Result Diagrams: 03/13/24 06:25 03/13/24 06:25 Assessment and Plan (1) Fracture of femoral neck, closed Current Visit: Yes Status: Acute Code(s): S72.009A - FRACTURE OF UNSP PART OF NECK OF UNSP FEMUR, INIT SNOMED Code(s): 703473139 (2) Fracture of femoral neck, left, closed Current Visit: Yes Status: Acute Code(s): S72.002A - FRACTURE OF UNSP PART OF NECK OF LEFT FEMUR, INIT SNOMED Code(s): 046360330 (3) Fall Current Visit: Yes Status: Acute Code(s): W19.XXXA - UNSPECIFIED FALL, INITIAL ENCOUNTER SNOMED Code(s): 0774197 Plan: -I discussed with the daughter over the phone as well as the patient in the room. The patient and the daughter requesting Dr. Russo for treatment as he treated him before that had excellent results in her longtime patients. I discussed with them that I will attempt to contact the doctor as well as discussed with him the case. I discussed with him that we are at the mercy of the OR schedule as well as his. I am available as well for surgical treatment later today. The patient is also requesting direct anterior total hip approach. Daughter is also requesting this. I discussed with him treatment options including nonoperative and operative treatments and options within the operating room. At this time operative treatment is warranted. They agree with this. The patient is currently nothing by mouth and will remain this at this time. She will be cleared for surgery for fixation of her left femoral neck fracture.
[2024-03-13] MEDS: KETOROLAC 15 MG/ML 1 ML VIAL IVP PRN (08:46)
[2024-03-13] MEDS: methocarbamoL 750 MG TAB PO SCH (08:49)
[2024-03-13] MEDS: HYDROcodone/APAP 5-325MG 1 EACH TAB PO PRN (08:49)
[2024-03-13] MEDS: CHOLECALCIFEROL 125 MCG (5000 IU) TABLET PO SCH (08:49)
[2024-03-13] MEDS: LACTATED RINGERS 1,000 ML IV SCH (08:52)
--- NOTE | 2024-03-13 23:13 | P.CONS ---
History of Present Illness - Reason for Consult Consult date: 03/13/24 Medical management - Chief Complaint Left hip pain status post fall - History of Present Illness Patient is a 78-year-old female with a known history of right total hip arthroplasty, osteoarthritis, chronic back pain, compression fractures of the back, basal cell skin cancer on chest and legs status post surgery and a prior history of smoking. Patient presents to ER with complaints of left hip pain status post fall. Patient was at her friend's home when she tripped over the step and fell on her left hip. Patient was able to get herself with some assistance and was able to drive back home. Upon reaching home patient went inside and sat on the chair and was unable to get up by herself since Laboratory data showed WBC 8.7 hemoglobin 13.1 and platelets 235 sodium 137 potassium 4.3 chloride 104 bicarb is 25 BUN 18 and creatinine 0.79 and blood sugar 123 and liver enzymes are not elevated. Then. Called her daughter and was taken to urgent care recently where she had x-ray of the left hip. She was also unable to bear weight on her left leg. Denied any head injury. No complaints of chest pain or shortness of breath. No dizziness or lightheadedness. Denies any recent illnesses. Patient had prior history of right total hip arthroplasty. Hip x-ray showed questionable cortical step-off/nondisplaced fracture along the medial aspect of the left femoral head seen on a single view only. CT hip showed comminuted minimally displaced acute fracture at the left femoral head/neck junction. Chest x-ray showed no acute cardiopulmonary process. EKG showed sinus rhythm with occasional supraventricular premature complexes. Review of Systems Constitutional: Patient denies any fever or chills . No generalized weakness or weight loss. Abdomen: Patient denied nausea vomiting and diarrhea and abdominal pain. Cardiovascular: Patient denies any chest pain or short of breath no palpitations. Respiratory: patient denied any cough or sputum production. No shortness of breath Neurologic: Patient denied any numbness or tingling. no headache. Musculoskeletal: Patient denies any complaints of joint swelling. Left hip pain Skin: Negative Psychiatric: Negative Endocrine: No heat or cold intolerance. No recent weight gain. Genitourinary: No dysuria or hematuria. All other 14 point ROS negative except the above Past Medical History Past Medical History: Cancer, Osteoarthritis (OA) Additional Past Medical History / Comment(s): Chronic back pain , compression fractures back with outpatient treatment currently, basal cell skin cancer on chest and legs, Pt states surgery and freezing skin cancer for tx last tx was june 2021 History of Any Multi-Drug Resistant Organisms: None Reported Past Surgical History: Orthopedic Surgery Additional Past Surgical History / Comment(s): Right knee arthroscopy. Past Anesthesia/Blood Transfusion Reactions: No Reported Reaction Past Psychological History: No Psychological Hx Reported Smoking Status: Former smoker Past Alcohol Use History: None Reported Past Drug Use History: None Reported - Past Family History Mother Family Medical History: Cancer Brother(s) Family Medical History: Cancer Sister(s) Family Medical History: Cancer Medications and Allergies Home Medications Medication Instructions Recorded Confirmed Type HYDROcodone/APAP 7.5-325MG [Shonto 1 tab PO BID PRN 03/13/24 03/13/24 History 7.5-325] Ibuprofen [Motrin Ib] 800 mg PO Q8H PRN 03/13/24 03/13/24 History Temazepam [Restoril] 30 mg PO HS 03/13/24 03/13/24 History Allergies Allergy/AdvReac Type Severity Reaction Status Date / Time No Known Allergies Allergy Verified 03/13/24 08:42 Physical Exam Vitals: Vital Signs Temp Pulse Resp BP Pulse Ox 03/13/24 07:57 72 16 136/59 95 03/13/24 05:00 67 18 98 03/13/24 02:02 97.9 F 65 16 142/58 95 03/13/24 00:12 65 16 146/56 96 03/12/24 18:22 98.5 F 64 18 177/84 99 Intake and Output 03/12/24 03/13/24 03/13/24 22:59 06:59 14:59 Other: Weight 58.967 kg PHYSICAL EXAMINATION: Patient is lying in the bed comfortably, no acute distress, awake alert and oriented.. HEENT: Normocephalic. Neck is supple. Pupils reactive. Nostrils clear. Oral cavity is moist. Neck reveals no JVD, carotid bruits, or thyromegaly. CHEST EXAMINATION: Trachea is central. Symmetrical expansion. Lung sanchez clear to auscultation and percussion. CARDIAC: Normal S1, S2 with no gallops. No murmurs ABDOMEN: Soft. Bowel sounds normal. No organomegaly. No abdominal bruits. Extremities: reveal no edema. No clubbing or cyanosis Neurologically awake, alert, oriented x3 with well-coordinated movements. No focal deficits noted Skin: No rash or skin lesions. Psychiatric: Coperative. Nonsuicidal Musculoskeletal: No joint swelling or deformity. Decreased range of motion of the left hip Results CBC & Chem 7: 03/13/24 06:25 12 06:25 Labs: Abnormal Lab Results - Last 24 Hours (Table) 03/12/24 03/13/24 03/13/24 Range/Units 21:24 06:25 06:25 Lymphocytes # 0.8 L (1.0-4.8) k/uL Sodium 135 L (137-145) mmol/L BUN 18 H (7-17) mg/dL Glucose 123 H 111 H (74-99) mg/dL Assessment and Plan Assessment: Acute comminuted minimally displaced fracture at the left femoral head/neck junction. Status post fall Prior history of right hip arthroplasty Osteoarthritis Chronic back pain due to compression fractures History of basal cell cancer skin cancer with removal Prior history of smoking DVT and GI prophylaxis as per primary team Plan: Patient will be continued on pain management with Shonto, Tylenol and Toradol as needed. Continue gentle IV hydration. Encourage incentive spirometry. Orthopedic surgery is on board and is planning for OR tomorrow. Patient is at low risk for orthopedic surgery at this time. Will continue to follow and further recommendations based on the clinical course. Thank you kindly for your consult.
[2024-03-14 08:59] LABS: Blood Urea Nitrogen 11.6 mg/dL (9.0-27.0); Calcium 8.3 mg/dL (8.7-10.3); Carbon Dioxide 22.2 mmol/L (21.6-31.8); Chloride 105 mmol/L (96-109); Glucose 115 mg/dL (70-110); Potassium 4.1 mmol/L (3.5-5.5); Sodium 138 mmol/L (135-145)
[2024-03-14] MEDS ORDERED: TRANEXAMIC 1,000 MG/100ML-NACL 1,000 MG in SALINE 1 100ML.BAG IVPB PRN ×2 (14:18→14:19)
[2024-03-14] MEDS: ONDANSETRON 4 MG/2 ML VIAL IVP PRN (14:19)
[2024-03-14] MEDS: DEXAMETHASONE SOD PHOSPHATE 4 MG/ML 1 ML VIAL IVP STA (14:20)
[2024-03-14] MEDS: IV FLUID CONTINUATION 600 ML IV ONE (14:22)
[2024-03-14] MEDS ORDERED: PROPOFOL 10 MG/ML 20 ML VIAL IV ONE (15:07)
[2024-03-14] MEDS ORDERED: fentaNYL (PF) 50 MCG/ML 2 ML AMP ONE (15:07)
[2024-03-14] MEDS ORDERED: KETAMINE HCL IN 0.9 % NACL 50 MG/5 ML SYRINGE ONE (15:07)
[2024-03-14] MEDS ORDERED: PHENYLEPHRINE 10 MG/ML VIAL ONE (15:07)
[2024-03-14] MEDS ORDERED: TRANEXAMIC 1,000 MG/100ML-NACL PREMIX BAG ONE (15:07)
[2024-03-14] MEDS ORDERED: MIDAZOLAM 2 MG/2 ML VIAL ONE (15:07)
[2024-03-14] MEDS ORDERED: ePHEDrine 50 MG/ML 1 ML VIAL ONE (15:07)
[2024-03-14] MEDS ORDERED: NALOXONE 0.4 MG/ML 1 ML VIAL IV PRN (15:10)
--- NOTE | 2024-03-14 16:35 | P.OP ---
Date of Procedure: 03/14/24 Preoperative Diagnosis: Displaced left hip femoral neck fracture Postoperative Diagnosis: Displaced left hip femoral neck fracture Procedure(s) Performed: Direct anterior left total hip arthroplasty Implants: 1. DePuy [place] 135 degree standard collar KA size 11 press-fit femoral stem 2. DePuy [place] 52 mm press-fit acetabular shell 3. DePuy [place] neutral polyethylene acetabular liner 36 mm ID 52 mm OD 4. DePuy metal femoral head 36 mm -2 Anesthesia: spinal Surgeon: Satish Russo Cutter Aluminum Sheet #1: Alexi Kidd Estimated Blood Loss (ml): 35 Pathology: none sent Condition: stable Disposition: PACU Indications for Procedure: 78-year-old patient seen with a displaced left hip femoral neck fracture. I recommended direct anterior left total hip arthroplasty. Patient was agreeable. Consent was obtained. Operative Findings: See description of procedure Description of Procedure: The patient was taken to the operative suite. Patient underwent a spinal ane sthetic by the department of anesthesia. Patient was then transferred to the [place] table. Patient was given preoperative IV antibiotics and TXA. Both lower extremities were placed in standard leg spars. The hip was then prepped and draped in the normal sterile orthopedic fashion. A standard anterior incision was made beginning 3 cm lateral and 1 cm distal to the ASIS extending 10 cm. Dissection was then carried down through the subcutaneous soft tissues down to the fascia overlying the tensor fascia kota. An incision was now made through the fascia. Careful dissection was taken down exposing the tensor fascia kota muscle. A Cobra retractor was now placed along the medial femoral neck and a second one along the lateral femoral neck. The venous circumflex vessels were now identified, cauterized and clipped. We identified the anterior hip capsule. An incision was made through the hip capsule along the lateral border and I immediately hemarthrosis consistent with her fracture. I performed a partial anterior capsulectomy. I noted a displaced femoral neck fracture. Retractors were now placed around the femoral neck itself. A femoral neck cut was now made with a sagittal saw. It was completed with an osteotome at the lateral neck area. The femoral head was now removed without difficulty. The extremity was now rotated to 60 of external rotation. It was locked in position. Residual labrum was now debrided out. Serial reaming was performed of the acetabulum while Helio RAMÍREZ assisted holding an anterior retractor for exposure. Once we reached the appropriate size and a trial was position and fit nicely. The appropriate size was now chosen opened and made available. It was introduced into the acetabulum without difficulty. The C-arm/fluoroscopy was now brought into the operative field. We made sure we had a true AP pelvic view. We now under direct C-arm/fluoroscopy introduced into the acetabular component with appropriate version and inclination. I held the cup in appropriate position well Helio RAMÍREZ used a mallet to seat the acetabular component. I noted the component now to be well seated and stable. Acetabular cup introduce her was removed. The C-arm was pulled back. An appropriate liner was introduced and clicked into position. It was felt to be stable. At this point retractors were removed. The extremity was now placed into 120 external rotation with no traction. The leg was now dropped to the ground and adducted. Appropriate retractors were now positioned along the proximal femur. We also placed our femoral look into position. Additional capsular releasing was performed to gain access to the proximal femur. We now used a box osteotome. A canal finder was now utilized. Serial broaching was now performed with the assistance of Helio RAMÍREZ tapping the broaches down with a mallet while held the broach in appropriate rotation and position. This was done until we reached the appropriate size with good overall rotational stability. Appropriate calcar planing was performed. A trial head/neck was placed into position. I obtained an AP pelvis which demonstrated adequate leg length alignment and appropriate sizing and position of the trial components. The C-arm/fluoroscopy was pulled back. Retractors were repositioned and the hip was dislocated. The leg was again taken down to the ground and adducted. Appropriate retractors were repositioned as well as the femoral hook. All trial components were removed. The femoral implant was opened along with the femoral head. The femoral implant was introduced on the appropriate handle into our pre-broached area. I held the component position well Helio RAMÍREZ used a mallet to seat the femoral component. The femoral component was now noted to be well seated and stable.. The femoral head was introduced with good positioning and fixation noted. Retractors were now removed. The hip was now reduced. There appeared be good positioning of the hip confirmed on intraoperative fluoroscopy. Spot films were obtained to document this. A second gram of TXA was given. The deep and superficial soft tissues were infiltrated with local analgesic. Bipolar cautery had been utilized intermittently through the procedure for hemostasis. The wound was irrigated copiously with pulse lavage mechanical irrigation. The fascia was repaired with Vicryl suture. The subcutaneous soft tissues were repaired in layers with Vicryl suture. The skin was approximated with pernio/Dermabond. Sterile dressings were applied. Patient was then awakened, t ransferred to a bed and taken to recovery in stable condition. Helio RAMÍREZ assisted with the complex procedure.
[2024-03-14] MEDS: IV FLUID CONTINUATION 1,000 ML IV ONE ×2 (16:45→17:45)
[2024-03-14] MEDS: HYDROmorphone 0.5 MG/0.5 ML SYRINGE IVP PRN (16:50)
--- NOTE | 2024-03-14 17:44 | FL ---
EXAMINATION TYPE: FL guidance operating room, XR Hip Limited LT DATE OF EXAM: 03/14/2024 4:38 PM COMPARISON: Pre Operative Images if available both CT/MRI or plain film CLINICAL INDICATION: Female, 78 years old with history of Left Hip-Ant; TECHNIQUE: FL guidance operating room, XR Hip Limited LT, multiple fluoroscopic images provided for p rocedure. Total fluoroscopy time: 119.2 seconds Total submitted images to PACS: 2 DAP: [id number] mGym2 Gycm2 uGym2 cGycm2 or equivalent. FINDINGS: Fluoroscopic images during internal fixation/arthroplasty demonstrate hardware in appropriate positio n. Hardware appears intact. No immediate complication identified. IMPRESSION: 1. No evidence for intraoperative complication. 2. Please see the operative/procedural note for further details. [facility], , 03/14/2024 5:42 PM
[2024-03-14] MEDS: SENNOSIDES-DOCUSATE SODIUM 1 EACH TAB PO SCH (20:52)
--- NOTE | 2024-03-14 21:07 | P.PN ---
Subjective Progress Note Date: 03/14/24 Patient is a 78-year-old female with a known history of right total hip arthroplasty, osteoarthritis, chronic back pain, compression fractures of the back, basal cell skin cancer on chest and legs status post surgery and a prior history of smoking. Patient presents to ER with complaints of left hip pain status post fall. Patient was at her friend's home when she tripped over the step and fell on her left hip. Patient was able to get herself with some assistance and was able to drive back home. Upon reaching home patient went inside and sat on the chair and was unable to get up by herself since Laboratory data showed WBC 8.7 hemoglobin 13.1 and platelets 235 sodium 137 potassium 4.3 chloride 104 bicarb is 25 BUN 18 and creatinine 0.79 and blood sugar 123 and liver enzymes are not elevated. Then. Called her daughter and was taken to urgent care recently where she had x-ray of the left hip. She was also unable to bear weight on her left leg. Denied any head injury. No complaints of chest pain or shortness of breath. No dizziness or lightheadedness. Denies any recent illnesses. Patient had prior history of right total hip arthroplasty. Hip x-ray showed questionable cortical step-off/nondisplaced fracture along the medial aspect of the left femoral head seen on a single view only. CT hip showed comminuted minimally displaced acute fracture at the left femoral head/neck junction. Chest x-ray showed no acute cardiopulmonary process. EKG showed sinus rhythm with occasional supraventricular premature complexes. 03/14/2024 Patient is resting in the bed. Awake alert and oriented x 3. Pain is well- controlled. Scheduled for left hip surgery sometime this afternoon. Denies any chest pain or shortness of breath. No headache or dizziness or lightheadedness. Laboratory data showed sodium 138 potassium 4.1 chloride 105 bicarb is 22.2 BUN 11.6 and creatinine 0.8 and blood sugar 115 Current medications reviewed. Objective - Vital Signs Vital signs: Vital Signs Temp 98.2 F 03/14/24 16:45 Pulse 80 03/14/24 17:33 Resp 16 03/14/24 17:33 BP 149/65 03/14/24 17:33 Pulse Ox 96 03/14/24 17:33 FiO2 Intake & Output 03/14/24 03/14/24 03/15/24 06:59 18:59 06:59 Intake Total 1000 Output Total 450 635 Balance -450 365 Weight 58.967 kg Intake: IV 1000 Output: Urine 450 600 Estimated Blood Loss 35 Other: Voiding Method Indwelling Catheter Indwelling Catheter - Exam PHYSICAL EXAMINATION: Patient is lying in the bed comfortably, no acute distress, awake alert and oriented.. HEENT: Normocephalic. Neck is supple. Pupils reactive. Nostrils clear. Oral cavity is moist. Neck reveals no JVD, carotid bruits, or thyromegaly. CHEST EXAMINATION: Trachea is central. Symmetrical expansion. Lung sanchez clear to auscultation and percussion. CARDIAC: Normal S1, S2 with no gallops. No murmurs ABDOMEN: Soft. Bowel sounds normal. No organomegaly. No abdominal bruits. Extremities: reveal no edema. No clubbing or cyanosis Neurologically awake, alert, oriented x3 with well-coordinated movements. No focal deficits noted Skin: No rash or skin lesions. Psychiatric: Coperative. Nonsuicidal Musculoskeletal: No joint swelling or deformity. Decreased range of motion of the left hip - Labs CBC & Chem 7: 03/13/24 06:25 03/14/24 03:41 Labs: Abnormal Lab Results - Last 24 Hours (Table) 03/14/24 Range/Units 03:41 Glucose 115 H (70-110) mg/dL Calcium 8.3 L (8.7-10.3) mg/dL Assessment and Plan Assessment: Acute comminuted minimally displaced fracture at the left femoral head/neck junction. Status post fall Prior history of right hip arthroplasty Osteoarthritis Chronic back pain due to compression fractures History of basal cell cancer skin cancer with removal Prior history of smoking DVT and GI prophylaxis as per primary team Plan: Patient will be continued on pain management with [place], Tylenol and Toradol as needed. Continue gentle IV hydration. Encourage incentive spirometry. Orthopedic surgery is on board and is planning for OR today afternoon. Patient is at low risk for orthopedic surgery at this time. Will continue to follow and further recommendations based on the clinical course.
[2024-03-15] MEDS: HYDROcodone/APAP 7.5-325MG 1 EACH TAB PO PRN
[2024-03-15 04:42] LABS: Basophils % (A) 0 %; Eosinophils % (A) 0 %; HCT 28.3 % (34.0-46.0); Lymphocytes # (A) 0.9 k/uL (1.0-4.8); Lymphocytes % (A) 13 %; MCH 30.4 pg (25.0-35.0); MCHC 33.4 g/dL (31.0-37.0); MCV 90.9 fL (80.0-100.0); Mean Platelet Volume 8.4; Monocytes # (A) 0.3 k/uL (0-1.0); Monocytes % (A) 4 %; Neutrophils # (A) 5.7 k/uL (1.3-7.7); Neutrophils % (A) 83 %; Platelet Count 150 k/uL (150-450); RBC 3.12 m/uL (3.80-5.40); RDW 13.6 % (11.5-15.5); WBC 6.8 k/uL (3.8-10.6)
[2024-03-15 04:43] LABS: HGB 9.5 gm/dL (11.4-16.0)
[2024-03-15] MEDS: ASPIRIN 325 MG TAB PO SCH (06:50)
[2024-03-15 07:43] VITALS: BP 124/66; PULSE 62; RESP 18; TEMP 97.9
[2024-03-15] MEDS: FAMOTIDINE 20 MG TAB PO SCH (08:38)
--- NOTE | 2024-03-15 10:02 | P.DS ---
Providers Date of admission: 03/12/24 22:20 Expected date of discharge: 03/15/24 Attending physician: Satish Russo Consults: 03/12/24 22:50 Consult Physician Routine Consulting Provider: Alton Carlos Consult Reason/Comments: medical management Do you want consulting provider notified?: Yes, Notify in am Primary care physician: Srinivasa Gonzalez MD Hospital Course: Date of admission: 03/13/2024 Date of discharge: 03/15/2024 Admission diagnosis: Left hip femoral neck fracture Discharge diagnosis: Same Attending physician: Dr. Russo Surgical procedures: Direct anterior left total hip arthroplasty Brief history: Patient is a 78-year-old female with a history of left hip femoral neck fracture status post fall. At this point patient has failed conservative treatment measures and has opted to proceed with a elective direct anterior left total hip arthroplasty. Hospital course: Details of patient's surgery can be found in operative report. Patient tolerated the procedure well and was subsequently transported to orthopedic floor. Patient's orthopeidc and medical care was provided daily. Patient had daily laboratory tests performed for evaluation of overall blood counts. Patient had daily physical therapy to include strengthening range of motion as well as education with walker ambulation. Patient was treated with aspirin for their postoperative DVT prophylaxis during their inpatient stay. Patient was noted to have a relatively uneventful postoperative course. Patient reported satisfactory pain control with oral pain medications by postoperative day 1. Patient showed satisfactory progress with physical therapy. Patient moved steadily through the program and had no difficulty meeting the goals by postoperative day 1. Given patient's otherwise satisfactory course and having met physical therapy goals, plan is to discharge patient home with health services on postoperative day 1. Discharge condition/disposition: Patient will be discharged home with health services in stable condition. Discharge medications: Instructions are given on resumption of patient's normal daily medications per primary care recommendation, in addition patient will be prescribed [place] 7.5 mg / 325 mg; patient has aspirin at home to take aspirin 325 mg daily x 4 weeks. Discharge instructions: 1. Wound care and infection precautions, keep incision dry and covered while showering, no lotions, creams, moisturizers. No soaking, tubs, pools, hottubs. Do not scrub over the incision. 2. Weight-bear as tolerated with walker / cane until follow-up. 3. Ice and elevate when necessary. Do not exceed 20 minutes per hour with ice pack. 4. Utilize compression sleeve until seen at first follow up appointment. 5. Visiting nursing care. 6. Home physical therapy. 7. Pain meds and anticoagulants per prescription. 8. Pain medication has potential to cause constipation. Increase oral fluid and fiber intake. Contact primary care provider if you have not had a bowel movement within 48 hours after discharge 9. No anti-inflammatory medication until discussed at first post operative visit, this including Motrin, Aleve, Mobic, Diclofenac. 10. Follow up in office at 2 weeks postop with Helio Kidd PA-C / Keith Arredondo PA-C 11. Follow up with your primary care doctor 7-10 days after discharge. 12. Contact [facility] with any questions, . Keep incision clean, dry, intact. While showering, cover silver foam dressing with Saran wrap. Keep silver foam dressing on until , 03/21/2024. Once dressing is removed on 03/21/2024, it is okay to shower directly over incision. Assessment: Left hip femoral neck fracture Procedures: Direct anterior left total hip arthroplasty Patient Condition at Discharge: Good Plan - Discharge Summary Discharge Rx Participant: No New Discharge Prescriptions: New HYDROcodone/APAP 7.5-325MG [[place] 7.5-325] 1 tab PO Q6HR PRN #28 tab PRN Reason: Pain No Action HYDROcodone/APAP 7.5-325MG [[place] 7.5-325] 1 tab PO BID PRN PRN Reason: Pain Temazepam [Restoril] 30 mg PO HS Ibuprofen [Motrin Ib] 800 mg PO Q8H PRN PRN Reason: Pain Discharge Medication List HYDROcodone/APAP 7.5-325MG [[place] 7.5-325] 1 tab PO BID PRN 03/13/24 [History] Ibuprofen [Motrin Ib] 800 mg PO Q8H PRN 03/13/24 [History] Temazepam [Restoril] 30 mg PO HS 03/13/24 [History] HYDROcodone/APAP 7.5-325MG [[place] 7.5-325] 1 tab PO Q6HR PRN #28 tab 03/15/24 [Rx] Follow up Appointment(s)/Referral(s): Srinivasa Gonzalez MD [Primary Care Provider] - 1-2 days Alexi Kidd, PAULINE [PHYSICIAN PARASITOLOGY TEACHER] - 2 Weeks Activity/Diet/Wound Care/Special Instructions: Discharge instructions: 1. Wound care and infection precautions, keep incision dry and covered while showering, no lotions, creams, moisturizers. No soaking, tubs, pools, hottubs. Do not scrub over the incision. 2. Weight-bear as tolerated with walker / cane until follow-up. 3. Ice and elevate when necessary. Do not exceed 20 minutes per hour with ice pack. 4. Utilize compression sleeve until seen at first follow up appointment. 5. Visiting nursing care. 6. Home physical therapy. 7. Pain meds and anticoagulants per prescription. 8. Pain medication has potential to cause constipation. Increase oral fluid and fiber intake. Contact primary care provider if you have not had a bowel movement within 48 hours after discharge 9. No anti-inflammatory medication until discussed at first post operative visit, this including Motrin, Aleve, Mobic, Diclofenac. 10. Follow up in office at 2 weeks postop with Helio Kidd PA-C / Keith Arredondo PA-C 11. Follow up with your primary care doctor 7-10 days after discharge. 12. Contact [facility] with any questions, . Keep incision clean, dry, intact. While showering, cover silver foam dressing with Saran wrap. Keep silver foam dressing on until , 03/21/2024. Once dressing is removed on 03/21/2024, it is okay to shower directly over incision. Discharge Disposition: HOME WITH HOME HEALTH SERVICES
--- NOTE | 2024-03-15 10:06 | P.PN ---
Subjective Progress Note Date: 03/15/24 Principal diagnosis: Left hip femoral neck fracture Patient was seen at bedside this morning sitting up in chair with legs elevated and dressing present over left anterior hip. Patient says she just finished working with therapy walked out of the hallway and up and down steps. Patient says she did do well with therapy and pain is controlled with oral medication. She says she has been urinating without issue since surgery yesterday. Patient states no bowel movement yet, however, patient states she has been passing gas. Patient states she does have a walker and cane at home that she can use as needed. Patient hoping to go home later today. Patient denies any other co mplaints at this time. Objective - Vital Signs Vital signs: Vital Signs Temp 97.9 F 03/15/24 07:18 Pulse 62 03/15/24 07:18 Resp 18 03/15/24 07:18 BP 124/66 03/15/24 07:18 Pulse Ox 97 03/15/24 07:18 FiO2 Intake & Output 03/14/24 03/15/24 03/15/24 18:59 06:59 18:59 Intake Total 1000 Output Total 635 750 Balance 365 -750 Intake: IV 1000 Output: Urine 600 750 Estimated Blood Loss 35 Other: Voiding Method Indwelling Catheter - Exam Left hip: Incision is clean, dry, and intact. The silver foam dressing is in good condition. There is minimal soft tissue swelling and ecchymosis surrounding the medial and lateral aspects of the incision. Calf is soft, no tenderness with palpation. Plantar flexion, dorsiflexion, EHL, FHL are intact. Sensory exam to light touch throughout the extremity is intact, dorsal pedis pulses 2+. - Labs CBC & Chem 7: 03/15/24 03:34 03/14/24 03:41 Labs: Abnormal Lab Results - Last 24 Hours (Table) 03/15/24 Range/Units 03:34 RBC 3.12 L (3.80-5.40) m/uL Hgb 9.5 L D (11.4-16.0) gm/dL Hct 28.3 L (34.0-46.0) % Lymphocytes # 0.9 L (1.0-4.8) k/uL Assessment and Plan Assessment: 1. Left hip femoral neck fracture -Postop day 1 status post direct anterior left total hip arthroplasty Plan: 1. Left hip femoral neck fracture -direct anterior left total hip arthroplasty performed yesterday, , 03/14/2024. Patient stable bedside this morning with dressing present over left anterior hip. Patient did do well with therapy this morning. Patient does have a walker for home. Discharge home to day with health services. 2. Appreciate medical management 3. Pain management -[place] 4. DVT prophylaxis -aspirin 5. GI prophylaxis -[place]na 6. PT/OT -weightbearing as tolerated with walker 7. Encourage incentive spirometer use 8. Discharge planning -discharge home today with health services. Time with Patient: Less than 30
--- NOTE | 2024-03-18 10:16 | P.PN ---
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 Patient presents to ER with complaints of left hip pain status post fall. Patient was at her friend's home when she tripped over the step and fell on her left hip. Patient was able to get herself with some assistance and was able to drive back home. Upon reaching home patient went inside and sat on the chair and was unable to get up by herself since Laboratory data showed WBC 8.7 hemoglobin 13.1 and platelets 235 sodium 137 potassium 4.3 chloride 104 bicarb is 25 BUN 18 and creatinine 0.79 and blood sugar 123 and liver enzymes are not elevated. Then. Called her daughter and was taken to urgent care recently where she had x-ray of the left hip. She was also unable to bear weight on her left leg. Denied any head injury. No complaints of chest pain or shortness of breath. No dizziness or lightheadedness. Denies any recent illnesses. Patient had prior history of right total hip arthroplasty. Hip x-ray showed questionable cortical step-off/nondisplaced fracture along the medial aspect of the left femoral head seen on a single view only. CT hip showed comminuted minimally displaced acute fracture at the left femoral head/neck junction. Chest x-ray showed no acute cardiopulmonary process. EKG showed sinus rhythm with occasional supraventricular premature complexes. 03/14/2024 Patient is resting in the bed. Awake alert and oriented x 3. Pain is well- controlled. Scheduled for left hip surgery sometime this afternoon. Denies any chest pain or shortness of breath. No headache or dizziness or lightheadedness. Laboratory data showed sodium 138 potassium 4.1 chloride 105 bicarb is 22.2 BUN 11.6 and creatinine 0.8 and blood sugar 115 Current medications reviewed. 03/15/2024 Patient is seen in follow-up status post left hip surgical intervention being closely monitored with orthopedics as attending. Patient with plans on going home with rehab in the outpatient setting and is medically stable. Patient reports to feeling well and would like to go home. Patient encouraged incentive spirometer use at least 10 times every hour while awake. Other home medications reviewed and resumed as appropriate. Patient denies any chest pain, shortness of breath, or palpitations at this time and is tolerating diet with no reported nausea or vomiting. Review of systems: Constitutional: No reports of fatigue, fever, or chills Cardiovascular: No reports of chest pain or palpitations Respiratory: No reports of shortness of breath or cough GI: No reports of nausea, vomiting, or diarrhea : No reports of dysuria or retention Neurovascular: reports of generalized weakness with some minimal left hip pain All medications have been reviewed PHYSICAL EXAMINATION: Patient is sitting up in the bed comfortably, no acute distress, awake alert and oriented.. HEENT: Normocephalic. Neck is supple. Pupils reactive. Nostrils clear. Oral cavity is moist. Neck reveals no JVD, carotid bruits, or thyromegaly. CHEST EXAMINATION: Trachea is central. Symmetrical expansion. Lung sanchez clear to auscultation and percussion. CARDIAC: Normal S1, S2 with no gallops. No murmurs ABDOMEN: Soft. Bowel sounds normal. No organomegaly. No abdominal bruits. Extremities: reveal no edema. No clubbing or cyanosis Neurologically awake, alert, oriented x3 with well-coordinated movements. No focal deficits noted Skin: No rash or skin lesions. Psychiatric: Coperative. Nonsuicidal Musculoskeletal: No joint swelling or deformity. Decreased range of motion of the left hip Assessment: Acute comminuted minimally displaced fracture at the left femoral head/neck junction. Status post left total hip arthroplasty Status post fall Prior history of right hip arthroplasty Osteoarthritis Chronic back pain due to compression fractures History of basal cell cancer skin cancer with removal Prior history of smoking DVT and GI prophylaxis as per primary team Plan: Patient will be continued on pain management with [place], Tylenol and Toradol as needed. Continue gentle IV hydration. Encourage incentive spirometry use at least 10 times every hour while awake. Orthopedic surgery is on board and is planning on discharge today. Patient is medically stable once cleared by orthopedics for discharge Home medications reviewed and resumed as appropriate Thank you kindly for this consultation. We will continue to follow with orth opedics during hospitalization. The impression and plan of care has been dictated by Gabi Aleman, Nurse Practitioner as directed. Dr. Juan MD I have performed a history and examination and MDM of this patient, discussed the same with the dictator, and agree with the dictator's assessment and plan as written ,documented as a scribe. Based on total visit time, I have performed more than 50% of the visit. Objective - Vital Signs Vital signs: Vital Signs Temp 97.9 F 03/15/24 07:18 Pulse 62 03/15/24 08:40 Resp 18 03/15/24 07:18 BP 124/66 03/15/24 07:18 Pulse Ox 97 03/15/24 07:18 FiO2 Intake & Output 03/14/24 03/15/24 03/15/24 18:59 06:59 18:59 Intake Total 1000 Output Total 635 750 Balance 365 -750 Intake: IV 1000 Output: Urine 600 750 Estimated Blood Loss 35 Other: Voiding Method Indwelling Catheter Toilet - Labs CBC & Chem 7: 03/15/24 03:34 03/14/24 03:41 Labs: Abnormal Lab Results - Last 24 Hours (Table) 03/15/24 Range/Units 03:34 RBC 3.12 L (3.80-5.40) m/uL Hgb 9.5 L D (11.4-16.0) gm/dL Hct 28.3 L (34.0-46.0) % Lymphocytes # 0.9 L (1.0-4.8) k/uL
== END 2024-03-15 13:15 | disposition home health service (06) | DRG 522 ==
LOC: EC 17:59 → 4SSUR 22:20
PROVIDERS: ADMIT Orthopaedic Surgery; ATTEND Orthopaedic Surgery
PROC: 0SRB01A Replacement of Left Hip Joint with Metal Synthetic Substitute, Uncemented, Open Approach (ICD-10-PCS; principal; 2024-03-14 07:30)
DX: S72.002A Fracture of unspecified part of neck of left femur, initial encounter for closed fracture (principal); M19.90 Unspecified osteoarthritis, unspecified site; G89.29 Other chronic pain; I49.1 Atrial premature depolarization; G89.21 Chronic pain due to trauma; W01.0XXA Fall on same level from slipping, tripping and stumbling without subsequent striking against object, initial encounter; Z96.641 Presence of right artificial hip joint; Z87.891 Personal history of nicotine dependence; Z85.828 Personal history of other malignant neoplasm of skin
CPT/HCPCS: 36415; 51702; 71045; 73501; 73502; 80048; 80053; 85025; 85610; 85730; 86850; 86900; 86901; 93005; 96361; 96374; 96375; 96376; 99285

== ENCOUNTER → 2024-04-08 | Outpatient (CLI) | payer MEDICARE, OTHER ==
[2024-04-08 14:24] VITALS: BP 117/64; PULSE 78; RESP 17; TEMP 97.6
--- NOTE | 2024-04-08 15:47 | P.PAINPG ---
PQRS Measure Charge Sheet Comment: HISTORY OF PRESENT ILLNESS: A 78 yr old female presents today w severe and chronic LBP x 1 yr secondary to radiculopathy, spondylosis and facet arthropathy without myelopathy for medication refills. Pt states pain level is provoked at 6 /10 in intensity, intermittent, localized in the lower lumbar spine, predominantly axial, stabbing in character w occasional shooting pain towards the L & R of midline. Pain is provoked by standing for periods > 15 min. Pain is alleviated by PT in 2021, alternating heat & ice, medications, chiropractic treatments as needed, repositioning and rest. Interventional procedures include BL RFA L3-L5 (06/06/23) Medications include [place] 7.5/325mg #60, Tyl, Ibu REVIEW OF ORGAN SYSTEMS: CONSTITUTIONAL: No fevers or chills. No recent weight loss. NEUROLOGICAL: + numbness and tingling along the distal extremities. No seizure disorders or headaches. MUSCULOSKELETAL: + pain PSYCHIATRIC: Denies current depression or suicidal thoughts. Physical Examinations : Constitutional : Cooperative , not in acute distress . Neurologic : Cranial nerve II to XII intact. No focal neurological deficits. Psychiatric : alert & oriented x 3. Matching mood & appropriate affect. Judgment & insight intact. Musculoskeletal : Cervical Spine Motor strength in the deltoid and biceps: Normal right side. Normal Left side Motor strength biceps and the wrist extensors: Normal right side . Normal left side Motor strength in the triceps muscle: Normal right side. Normal left side Deep tendon reflexes: Normal at the biceps. Normal at Brachioradialis. Normal at triceps Vertebral body tenderness to deep palpation over Cervical facet loading test: positive bilaterally Spurling test: positive bilaterally Neck distraction test: positive bilaterally Allan sign: positive bilaterally Lumbar spine +Trendelenburg Sign BL Motor strength lower extremities ,thigh and legs 5/5 Right side , 5/5 Left side Deep tendon reflexes : Normal Knee Jerk. Normal Ankle Jerk Vertebral body tenderness over [place] Test positive L5 Lumbar facet Loading Test: positive Right / positive Range of motion of the lumbar spine Flexion 30 degrees, extension 10 degrees Straight Leg Raise test: Left/ Right positive at degrees Tyrone test: positive right / positive left. Severe tenderness over the Sacroiliac joint on the Right / Left sides Gaenslen test: positive bilaterally Seated flexion test: positive bilaterally. Sacral spine : Severe tenderness over the Sacroiliac joint: right side / left side Range of motion: Flexion of the lumbar spine <60 degrees Range of motion: Extension of the lumbar spine <20 degrees Gaenslen's Test positive Tyrone test: positive right side / left side Thigh Thrust Test Sacral Thrust Test Imaging: MRI non contrast of the lumbar spine from 05/27/21 reviewed Assessment/ Plan : Lumbar radiculopathy, Lumbar Dextroscoliosis Recommendation of medication management. [place] 7.5/325mg #60 w 2 RF . Use, side effects, adverse reactions and safe storage discussed. Pt acknowledged understanding, Opiate/ Narcotic agreement signed 06/22/23 . UDS from 01/15/24 reviewed and consistent. All questions answered. I have spent greater than 30 minutes on patient care today. Dr Parikh was available by phone for the evaluation of this patient. The time was used to review the medical records including relevant urine studies and Prescription history (MAPs), review of the available imaging, evaluation and examination of the patient, coordination of care with the medical staff and if applicable referring physicians, as well as creation of the medical record PQRS Narrative: Narcotic Agreement Date Signed 06/22/23 Hx Alcohol Use (MH) No Home Medications: Ambulatory Orders HYDROcodone/APAP 7.5-325MG [[place] 7.5-325] 1 tab PO BID PRN 03/13/24 Ibuprofen [Motrin Ib] 800 mg PO Q8H PRN 03/13/24 Temazepam [Restoril] 30 mg PO HS 03/13/24 HYDROcodone/APAP 7.5-325MG [[place] 7.5-325] 1 tab PO Q6HR PRN #28 tab 03/15/24 Controlled Substance Measures - Controlled Substance Measures Is patient prescribed a controlled substance at discharge?: Yes When asked, does pt state using other controlled substances?: No If prescribed controlled substance>3 days was MAPS reviewed?: Yes
== END ==
LOC: PNWHC3 13:30
PROVIDERS: ATTEND Specialist
DX: M54.16 Radiculopathy, lumbar region (principal); M41.86 Other forms of scoliosis, lumbar region; Z87.891 Personal history of nicotine dependence
CPT/HCPCS: 99211

== ENCOUNTER 2024-07-01 13:04 | Emergency (ER) | payer MEDICARE, OTHER ==
--- NOTE | 2024-07-01 14:06 | ED ---
Upper Extremity HPI <Humberto Chambers - Last Filed: 07/01/24 14:58> - General Source: patient Mode of arrival: ambulatory Limitations: no limitations - History of Present Illness MD Complaint: Injury to:: right, shoulder Place: home Improves With: immobilization, rest Worsens With: movement of extremity Context: fall Associated Symptoms: denies other symptoms <Xochilt Wilson - Last Filed: 07/01/24 15:37> - General Chief Complaint: Extremity Injury, Upper Stated Complaint: fall-arm pain, no thinners Time Seen by Provider: 07/01/24 13:19 - History of Present Illness Initial Comments: 79-year-old female presenting to ED with family for right shoulder pain after recent fall this morning. She tripped while walking across her room around 11 :30AM today over her desk chair onto her right shoulder. Has chronic back pain and follows pain management with prescription for Emporium 7-325mg PRN. She took Emporium this morning after the fall do to pain. Also takes Tylenol and Ibuprofen BID for back pain. Denies fever/chills, n/v/d, abdominal pain, CP, SOB. Denies medications including blood thinners. Denies LOC, WANG, weakness, numbness, tingling. Denies recent falls and goes to PT weekly for right hip pain. No other concerns at this time. (Xochilt Wilson) - Related Data Home Medications Medication Instructions Recorded Confirmed Temazepam [Restoril] 30 mg PO HS 03/13/24 07/01/24 Calcium 1000mg 1,000 mg PO DAILY 07/01/24 07/01/24 Ibuprofen [Motrin] 800 mg PO TID 07/01/24 07/01/24 Vitamin D3(Unknown Dose) 1 tab PO DAILY 07/01/24 07/01/24 polyethylene glycoL 3350 [Miralax] 17 gm PO DAILY 07/01/24 07/01/24 Previous Rx's Medication Instructions Recorded HYDROcodone/APAP 7.5-325MG [Emporium 1 tab PO BID PRN 30 Days #60 tab 04/08/24 7.5-325] HYDROcodone/APAP 10-325MG [Emporium 1 tab PO Q6HR PRN 3 Days #12 tab 07/01/24 10-325] Allergies Allergy/AdvReac Type Severity Reaction Status Date / Time No Known Allergies Allergy Verified 07/01/24 14:21 Review of Systems ROS Other: All systems not noted in ROS Statement are negative. <Humberto Chambers - Last Filed: 07/01/24 14:58> ROS Other: All systems not noted in ROS Statement are negative. Constitutional: Denies: fever, chills Cardiovascular: Denies: chest pain, palpitations Gastrointestinal: Denies: nausea, vomiting <Xochilt Wilson - Last Filed: 07/01/24 15:37> ROS Statement: Those systems with pertinent positive or pertinent negative responses have been documented in the HPI. 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 Past Anesthesia/Blood Transfusion Reactions: No Reported Reaction Past Psychological History: No Psychological Hx Reported Smoking Status: Former smoker Past Alcohol Use History: None Reported Past Drug Use History: None Reported - Past Family History Mother Family Medical History: Cancer Brother(s) Family Medical History: Cancer Sister(s) Family Medical History: Cancer <Xochilt Wilson - Last Filed: 07/01/24 15:37> General Exam Limitations: no limitations General appearance: alert, in no apparent distress Head exam: Present: atraumatic, normocephalic Respiratory exam: Present: normal lung sounds bilaterally. Absent: respiratory distress Cardiovascular Exam: Present: regular rate, normal rhythm GI/Abdominal exam: Present: soft. Absent: distended, tenderness Right General: Present: normal inspection Shoulder Exam: Present: tenderness, swelling. Absent: ecchymosis, deformity, crepitus, dislocation, erythema Upper Arm exam: Present: tenderness, swelling. Absent: ecchymosis, deformity, crepidus, erythema Elbow exam: Present: normal inspection, full ROM. Absent: tenderness Forearm Wrist exam: Present: normal inspection, full ROM. Absent: tenderness Hand Wrist exam: Present: normal inspection, full ROM. Absent: tenderness Neuro motor exam: Present: wrist extension intact Vascular: Present: normal capillary refill. Absent: vascular compromise Neurological exam: Present: alert, oriented X3 Psychiatric exam: Present: normal affect, normal mood Skin exam: Present: warm, dry, intact <WilsonXochilt frost - Last Filed: 07/01/24 15:37> Course Vital Signs 07/01/24 13:10 Temperature 97.4 F L Pulse Rate 60 Respiratory 18 Rate Blood Pressure 143/58 O2 Sat by Pulse 98 Oximetry Medical Decision Making <Humberto Chambers - Last Filed: 07/01/24 14:58> <Xochilt Wilson - Last Filed: 07/01/24 15:37> - Medical Decision Making I personally saw the patient and performed the critical portion of the service. I discussed the patient care with the Dr. Richards. I directed management, care planning and final disposition of the patient. This includes, but not limited to, review of all lab work, radiological studies, EKG's, consultations, vital signs, and nursing notes. EKG interpreted by me (3pts min.) @As above X-Rays interpreted by me (1 pt min.) @X-ray right humerus and shoulder interpreted by myself shows concern for nondisplaced proximal humerus fracture CT interpreted by me ( 1pt min.) @None U/S interpreted by me (1 pt min.) @None Critical care time of 0 minutes excluding separately billable procedures was spent in conjunction with critical care activities provided by the Resident and Attending simultaneously. I was present during no procedures for all critical portions of the procedure and as immediately available to furnish service during the entire procedure. (Humberto Chambers) Was pt. sent in by a medical professional or institution (, PA, VASCULAR TECH, urgent care, hospital, or usp...) When possible be specific @ -No Did you speak to anyone other than the patient for history (EMS, parent, family, police, friend...)? What history was obtained from this source @ -No Did you review nursing and triage notes (agree or disagree)? Why? @ -I reviewed and agree with nursing and triage notes Were old charts reviewed (outside hosp., previous admission, EMS record, old EKG, old radiological studies, urgent care reports/EKG's, usp records)? Report findings @ -No old charts were reviewed Differential Diagnosis? @ -Chest pain, altered mental status, abdominal pain women, abdominal pain men, vaginal bleeding, weakness, fever, dyspnea, syncope, headache, dizziness, GI bleed, back pain, seizure, CVA, palpatations, mental health, musculoskeletal EKG interpreted by me (3pts min.). @ -As above X-rays interpreted by me (1pt min.). @ -None done CT interpreted by me (1pt min.). @ -None done U/S interpreted by me (1pt. min.). @ -None done What testing was considered but not performed or refused? (CT, X-rays, U/S, labs)? Why? @ -None What meds were considered but not given or refused? Why? @ -None Did you discuss the management of the patient with other professionals (professionals i.e. , PA, VASCULAR TECH, lab, RT, psych nurse, 7th grade social studies teacher, real estate lawyer, teacher, optics technical officer, therapeutic case manager)? Give summary @ -Case discussed with the ED attending Dr. Medel. Was smoking cessation discussed for >3mins.? @ -No Was critical care preformed (if so, how long)? @ -No Were there social determinants of health that impacted care today? How? (Homelessness, low income, unemployed, alcoholism, drug addiction, transportation, low edu. Level, literacy, decrease access to med. care, skilled nursing, rehab)? @ -No Was there de-escalation of care discussed even if they declined (Discuss DNR or withdrawal of care, Hospice)? DNR status @ -No What co-morbidities impacted this encounter? (DM, HTN, Smoking, COPD, CAD, Cancer, CVA, ARF, Chemo, Hep., AIDS, mental health diagnosis, sleep apnea, morbid obesity)? @ -None Was patient admitted / discharged? Hospital course, mention meds given and route, prescriptions, significant lab abnormalities, going to OR and other pertinent info. @ -Patient received 1 dose of Toradol in the ED. X-ray showed a nondisplaced fracture. Patient will be discharged home. Patient is to have arm in sling. Patient will follow-up with Ortho outpatient. Short course of Emporium was provided. Undiagnosed new problem with uncertain prognosis? @ -No Drug Therapy requiring intensive monitoring for toxicity (Heparin, Nitro, Insulin, Cardizem)? @ -No Were any procedures done? @ -No Diagnosis/symptom? @ -Nondisplaced humerus fracture Acute, or Chronic, or Acute on Chronic? @ -Acute Uncomplicated (without systemic symptoms) or Complicated (systemic symptoms)? @ -Uncomplicated Side effects of treatment? @ -No Exacerbation, Progression, or Severe Exacerbation? @ -No Poses a threat to life or bodily function? How? (Chest pain, [place], [place], pneumonia, PE, COPD, DKA, ARF, appy, cholecystitis, CVA, Diverticulitis, Homicidal, Suicidal, threat to staff... and all critical care pts) @ -No (Xochilt Wilson) Disposition Is patient prescribed a controlled substance at d/c from ED?: No <Humberto Chambers - Last Filed: 07/01/24 14:58> Is patient prescribed a controlled substance at d/c from ED?: Yes When asked, does pt state using other controlled substances?: Yes If prescribed controlled substance>3 days was MAPS reviewed?: Prescribed <3 Days If opioid is for acute pain is fill amount 7 days or less?: Yes If Rx opioid, was Start Talking consent form obtained?: Yes Time of Disposition: 15:00 <Xochilt Wilson - Last Filed: 07/01/24 15:37> Clinical Impression: Fracture of humerus Disposition: HOME SELF-CARE Prescriptions: HYDROcodone/APAP 10-325MG [Emporium 10-325] 1 tab PO Q6HR PRN 3 Days #12 tab PRN Reason: Severe Pain (Scale 7 To 10) Referrals: Srinivasa Gonzalez MD [Primary Care Provider] - 1-2 days Cory Bernardo MD [STAFF PHYSICIAN] - 1-2 days
[2024-07-01] MEDS: KETOROLAC 15 MG/ML 1 ML VIAL IVP STA (14:14)
[2024-07-01] MEDS: HYDROcodone/APAP 10-325MG 1 EACH TAB PO ONE (15:05)
--- NOTE | 2024-07-01 15:06 | XR ---
EXAMINATION TYPE: XR shoulder complete RT, XR humerus RT DATE OF EXAM: 07/01/2024 CLINICAL INDICATION: Female, 79 years old with history of Fall, pain TECHNIQUE: Three views of the right shoulder are obtained. 2 views right humerus. COMPARISON: None. FINDINGS: Osseous structures are demineralized. There is acute nondisplaced comminuted fracture throu gh the surgical neck of the right shoulder. No glenohumeral joint dislocation. Moderate narrowing at the acromioclavicular joint. No additional acute displaced fracture in the mid to distal right humeru s. Visualized right ribs are intact. IMPRESSION: There is acute comminuted nondisplaced fracture through the surgical neck of the right h umerus. [facility], , 07/01/2024 3:03 PM
[2024-07-01 16:04] VITALS: BP 138/86; PULSE 64; RESP 20; TEMP 98
== END 2024-07-01 16:04 | disposition home or self-care (01) ==
LOC: EC 13:04
DX: S42.294A Other nondisplaced fracture of upper end of right humerus, initial encounter for closed fracture (principal); Z87.891 Personal history of nicotine dependence; W01.0XXA Fall on same level from slipping, tripping and stumbling without subsequent striking against object, initial encounter; Y93.01 Activity, walking, marching and hiking
CPT/HCPCS: 73030; 73060; 99284; 96374; J1885